=== PATIENT | male | born 1940 | race Caucasian/White ===

== ENCOUNTER → 2017-02-25 | Outpatient (CLI) | payer OTHER ==
[~2017-02-25] MED LIST: ANT25 PO; PRSC1; ZCRUNK; [UNRECOGNIZED DRUG - OTHER]
[2017-02-25 13:10] LABS: BASO % 1.1 %; BASO ABS # 0.08 K/uL (0-0.2); COMPLETE YES; HEMATOCRIT 39.3 % (42-52); IG% 1.8 %; LYMPH % 27.3 %; LYMPH ABS # 1.98 K/uL (1.2-3.4); MEAN CORPUSCULAR HEMOGLOBIN 35.7 pg (25-34); MEAN CORPUSCULAR HGB CONC 34.4 g/dl (32-36); MEAN PLATELET VOLUME 9.8 fL (7.4-10.4); MONO % 16.6 %; NEUT % 49.2 %; PLATELET COUNT 277 K/uL (130-400); RED BLOOD COUNT 3.78 M/uL (4.7-6.1); WHITE BLOOD COUNT 7.25 K/uL (4.8-10.8)
[2017-02-25 13:49] LABS: ALT/SGPT 30 U/L (12-78); AST/SGOT 16 U/L (15-37); BLOOD UREA NITROGEN 14 mg/dl (7-18); BUN/CREATININE RATIO 13.9 (10-20); CALCIUM 8.7 mg/dl (8.5-10.1); CARBON DIOXIDE 30 mmol/L (21-32); CHLORIDE 109 mmol/L (98-107); GLUCOSE 89 mg/dl (70-99); POTASSIUM 4.1 mmol/L (3.5-5.1); SODIUM 143 mmol/L (136-145); TRIGLYCERIDES 101 mg/dl (0-150); VERY LOW DENSITY LIPOPROT CALC 20 mg/dl
[2017-02-25 13:52] LABS: CHOLESTEROL 121 mg/dl (0-200); CHOLESTEROL/HDL RATIO 2.9; HDL CHOLESTEROL 42 mg/dl; LDL CHOLESTEROL CALCULATED 59 mg/dl
[2017-02-25 13:58] LABS: ESTIMATED AVERAGE GLUCOSE 123 mg/dl; HA1C FLAG Normal (Normal)
--- NOTE | 2017-03-02 13:45 | CODING QUERY MEDICAL NECESSITY ---
SUPPORTING DIAGNOSIS NEEDED A supporting diagnosis is required for the test/procedure performed on this patient in order for us to be reimbursed by the patient's insurance. Please provide a supporting diagnosis for the following test/procedure listed below next to the test name along with your signature. *If there is no additional diagnosis for this patient that would support the following test/procedure please document that below next to the test/procedure. Test(s)/Procedure(s) that require a supporting diagnosis: * VITAMIN B-12 LEVEL DIAGNOSIS: * GLYCATED HEMOGLOBIN DIAGNOSIS: * DOS: 02/25/17 Provider Signature: Date: Thank you Luz Marina [facility] Information Management Once completed, please kindly fax back to [phone] For questions please call [phone]
== END | disposition home or self-care (01) ==
LOC: C.LAB1850 11:41
PROVIDERS: ATTEND Internal Medicine
DX: E78.00 Pure hypercholesterolemia, unspecified (principal); D64.9 Anemia, unspecified; R73.9 Hyperglycemia, unspecified

== ENCOUNTER → 2017-03-24 | Outpatient (CLI) | payer OTHER ==
--- NOTE | 2017-03-24 11:22 | DIAGNOSTIC IMAGING REPORT ---
CHEST 2 VIEWS ROUTINE HISTORY: Cough. COMPARISON: Chest 12/09/2013. FINDINGS: No pneumothorax. No pleural effusions. No new focal lung consolidations to suggest pneumonia. Mild elevation of the right hemidiaphragm, unchanged. Left basilar interstitial thickening is also stable. The heart is stable in size. IMPRESSION: No significant change compared to the prior study. No acute process. Electronically signed by: Delvin Guevara M.D. 03/24/2017 11:20 AM Dictated Date/Time: 03/24/2017 11:18 AM
== END | disposition home or self-care (01) ==
LOC: C.RAD1850 11:08
PROVIDERS: ATTEND Physician Assistant
DX: R05 Cough (principal)

== ENCOUNTER → 2017-06-30 | Outpatient (CLI) | payer OTHER | END | disposition home or self-care (01) | LOC: C.LAB1850 12:10 | PROVIDERS: ATTEND Urology | DX: N40.1 Benign prostatic hyperplasia with lower urinary tract symptoms (principal); Z12.5 Encounter for screening for malignant neoplasm of prostate ==

== ENCOUNTER → 2017-09-08 | Outpatient (CLI) | payer OTHER ==
[2017-09-08 13:14] LABS: BASO % 1.3 %; BASO ABS # 0.09 K/uL (0-0.2); COMPLETE YES; EOS % 2.7 %; HEMATOCRIT 38.1 % (42-52); IG% 1.3 %; LYMPH ABS # 2.19 K/uL (1.2-3.4); MEAN CORPUSCULAR HGB CONC 33.6 g/dl (32-36); MEAN PLATELET VOLUME 9.6 fL (7.4-10.4); MONO % 15.6 %; NEUT % 48.1 %; PLATELET COUNT 270 K/uL (130-400); RED BLOOD COUNT 3.56 M/uL (4.7-6.1); WHITE BLOOD COUNT 7.07 K/uL (4.8-10.8)
[2017-09-08 13:48] LABS: ALT/SGPT 27 U/L (12-78); AST/SGOT 19 U/L (15-37); BLOOD UREA NITROGEN 21 mg/dl (7-18); BUN/CREATININE RATIO 24.1 (10-20); CALCIUM 8.6 mg/dl (8.5-10.1); CARBON DIOXIDE 26 mmol/L (21-32); CHLORIDE 109 mmol/L (98-107); CHOLESTEROL 132 mg/dl (0-200); CREATININE 0.86 mg/dl (0.60-1.40); GLUCOSE 97 mg/dl (70-99); POTASSIUM 3.9 mmol/L (3.5-5.1); SODIUM 141 mmol/L (136-145)
[2017-09-08 13:58] LABS: CHOLESTEROL/HDL RATIO 2.9; HDL CHOLESTEROL 46 mg/dl; LDL CHOLESTEROL CALCULATED 69 mg/dl; TRIGLYCERIDES 84 mg/dl (0-150); VERY LOW DENSITY LIPOPROT CALC 17 mg/dl
[2017-09-08 14:59] LABS: ESTIMATED AVERAGE GLUCOSE 128 mg/dl; HA1C FLAG Normal (Normal)
== END | disposition home or self-care (01) ==
LOC: C.LAB1850 12:00
PROVIDERS: ATTEND Internal Medicine
DX: E78.00 Pure hypercholesterolemia, unspecified (principal)

== ENCOUNTER → 2017-09-23 | Outpatient (CLI) | payer OTHER ==
--- NOTE | 2017-09-23 09:35 | DIAGNOSTIC IMAGING REPORT ---
(CHEST) THORAX WITHOUT CLINICAL HISTORY: R09.89 Rales shortness of breath COMPARISON STUDY: 10/17/2010 CT DOSE: 565.24 mGy.cm TECHNIQUE: CT of the thorax was performed from the thoracic inlet to the lung bases. Images are reviewed in the axial, sagittal, and coronal planes. IV contrast was not administered for this examination. A dose lowering technique was utilized adhering to the principles of ALARA. FINDINGS: Thyroid: Imaged portions of the thyroid gland are normal in appearance. Thoracic aorta: The thoracic aorta is normal in course and caliber, noting standard 3 vessel arch anatomy. Heart: There are coronary artery calcifications present. Lungs and pleural spaces: No pleural effusions are visualized. There is evidence for interstitial lung disease with subpleural reticulation. There is no definite honeycombing. There are few scattered low suspicion sub-6 mm perifissural and subpleural nodules. In a high risk patient, a [address] follow-up is optional. Mediastinum: There is no mediastinal lymphadenopathy. Elisha: There is no evidence of pathologic hilar lymphadenopathy given the limitations of a noncontrast study Axilla: Clear. Upper abdomen: Cholelithiasis Skeletal structures: There are no lytic or blastic osseous lesions. IMPRESSION: 1. Slight progression in the interstitial lung disease with subpleural reticulation 2. Scattered sub-6 mm subpleural and perifissural solid pulmonary nodules. In a high risk patient, 12 month follow-up is optional Electronically signed by: Parish Adan M.D. 09/23/2017 9:34 AM Dictated Date/Time: 09/23/2017 9:29 AM
== END | disposition home or self-care (01) ==
LOC: C.CTS 09:09
PROVIDERS: ATTEND Internal Medicine
DX: R09.89 Other specified symptoms and signs involving the circulatory and respiratory systems (principal); R91.8 Other nonspecific abnormal finding of lung field

== ENCOUNTER → 2018-03-08 | Outpatient (CLI) | payer OTHER ==
[2018-03-08 13:20] LABS: BASO % 0.7 %; BASO ABS # 0.05 K/uL (0-0.2); EOS % 3.2 %; EOS ABS # 0.22 K/uL (0-0.5); HEMATOCRIT 38.5 % (42-52); HEMOGLOBIN 13.1 g/dL (14.0-18.0); IG# 0.16 K/uL (0.00-0.02); LYMPH % 27.5 %; LYMPH ABS # 1.88 K/uL (1.2-3.4); MEAN CELL VOLUME 106.9 fL (80-100); MEAN CORPUSCULAR HEMOGLOBIN 36.4 pg (25-34); MEAN PLATELET VOLUME 9.7 fL (7.4-10.4); NEUT % 47.3 %; NEUT ABS # 3.22 K/uL (1.4-6.5); PLATELET COUNT 283 K/uL (130-400); RED CELL DISTRIBUTION WIDTH CV 17.3 % (11.5-14.5); RED CELL DISTRIBUTION WIDTH SD 67.3 fL (36.4-46.3); WHITE BLOOD COUNT 6.83 K/uL (4.8-10.8)
[2018-03-08 14:10] LABS: HEMOGLOBIN A1C 6.1 % (4.5-5.6)
[2018-03-08 14:34] LABS: ALT/SGPT 31 U/L (12-78); AST/SGOT 23 U/L (15-37); BLOOD UREA NITROGEN 15 mg/dl (7-18); CALCIUM 8.7 mg/dl (8.5-10.1); CARBON DIOXIDE 29 mmol/L (21-32); CHOLESTEROL 127 mg/dl (0-200); CREATININE 0.93 mg/dl (0.60-1.40); GLUCOSE 91 mg/dl (70-99); POTASSIUM 3.7 mmol/L (3.5-5.1); SODIUM 140 mmol/L (136-145)
[2018-03-08 14:45] LABS: LDL CHOLESTEROL CALCULATED 68 mg/dl
== END | disposition home or self-care (01) ==
LOC: C.LAB1850 11:45
PROVIDERS: ATTEND Internal Medicine
DX: R09.89 Other specified symptoms and signs involving the circulatory and respiratory systems (principal)

== ENCOUNTER → 2018-07-09 | Outpatient (CLI) | payer OTHER | END | disposition home or self-care (01) | LOC: C.LAB1850 11:00 | PROVIDERS: ATTEND Urology | DX: Z12.5 Encounter for screening for malignant neoplasm of prostate (principal) ==

== ENCOUNTER 2023-02-03 15:57 | Inpatient (IN) ==
--- NOTE | 2023-02-03 17:01 | XRay Report ---
SINGLE VIEW CHEST CLINICAL HISTORY: Dyspnea FINDINGS: An AP, portable, upright chest radiograph is compared to study dated 10/07/2021 and correlat ed with chest CT dated 11/10/2018. The heart is enlarged note and atherosclerotic calcification of th e thoracic aorta. Chronic interstitial thickening is similar to previous. Multifocal airspace consoli dation is seen throughout both lungs. Small pleural effusions are identified. No pneumothorax is seen . The skeletal structures are osteopenic. The bony thorax is grossly intact. A calcified gallstone is seen in the right upper quadrant. IMPRESSION: 1. Multifocal airspace consolidation is seen throughout both lungs. This could represent multifocal p neumonia and/or pulmonary edema. Clinical correlation will be essential. 2. Cardiomegaly. 3. Small pleural effusions. ACT 112: Negative or not required by law. Electronically signed by: Romaine Tucker M.D. 02/03/2023 4:59 PM
[2023-02-03 17:10] LABS: Hematocrit (blood only) 40.1 % (42.0-52.0); Hemoglobin 13.7 g/dl (14.0-18.0); Mean Corpuscular Hemoglobin 34.9 pg (25.0-34.0); Mean Corpuscular Hgb Conc 34.2 g/dL (32.0-36.0); Mean Corpuscular Volume 102.3 fL (80.0-100.0); Mean Platelet Volume 9.7 fL (9.4-12.4); Nucleated RBC # (auto) 0.09 K/uL (0-0.12); Nucleated RBC % (auto) 0.6 %; Platelet Count 788 K/uL (130-400); RDW Coefficient of Variation 22.6 % (11.5-14.5); RDW Standard Deviation 85.7 fL (36.4-46.3); Red Blood Count 3.92 M/uL (4.70-6.10); White Blood Count 16.12 K/ul (4.8-10.8)
[2023-02-03 17:18] LABS: Albumin Globulin Ratio 1.1 (0.9-2); Bilirubin,Total 1.8 mg/dl (0.2-1.0); Calcium 9.2 mg/dl (8.5-10.1); Creatinine Clr Calc Pharmacy 57.8 ml/min; Est GFR (African American) 76.2 ml/min; Est GFR (Non-African American) 65.8 ml/min; Globulin 3.6 gm/dl (2.5-4.0); Magnesium 2.5 mg/dl (1.7-2.4); Potassium 3.9 mmol/L (3.5-5.1); Total Protein 7.6 gm/dl (6.0-8.3)
--- NOTE | 2023-02-03 17:18 | Emergency Department Note ---
Impression & Plan Acute respiratory failure with hypoxia, Acute exacerbation of CHF (congestive heart failure), Non-ST elevation IN (NSTEMI), Elevated brain natriuretic peptide (BNP) level, COVID-19 ED Provider Note HISTORY OF PRESENT ILLNESS: Patient is a 83-year-old male presenting with shortness of breath and hypoxia. He was at his primary care provider's office for follow-up for medication refill and was noted to have oxygen saturation on room air of 60%. He was placed on 5 L nasal cannula and 911 was called. On EMS arrival, the patient was hypoxic on room air and started on 15 L nonrebreather. On arrival to the ER, the patient reports that he is short been short of breath for "a very long time" but has been significantly worse in the last 2 to 3 weeks. He reports bilateral lower extremity edema that has been developing over the last 2 weeks. Denies any prior history of heart failure. Denies any chest pain. He reports feeling short of breath with exertion. Denies any DVT or PE history. ROS: as above PHYSICAL EXAM: Constitutional: Patient appears in no acute distress. HENT: Head: Normocephalic and atraumatic. Eyes: EOMI, PERRL Mouth/Throat: Mucous membranes moist. Neck: Trachea midline. Neck supple. Cardiovascular: RRR, No murmurs, rubs or gallops. Intact distal pulses. Pulmonary/Chest: Coarse breath sounds bilaterally. Patient saturation 70% on room air. He was started on 10 L OxyMask Abdominal: BS +. Abdomen soft, no tenderness, rebound or guarding. Back: No midline spinal tenderness, no paraspinal tenderness, no CVA tenderness. Musculoskeletal: No tenderness or deformity noted. 3+ pitting edema of the bilateral lower extremities extending to the knees Skin: Warm and dry. No rash, erythema, pallor or cyanosis Psychiatric: Appropriate mood and affect for situation. Neurological: Alert and keenly responsive. CN II-XII grossly intact, moving all extremities equally and fully. MDM: - Vitals signs showed hypoxia. Patient's saturations in the 70s on room air. He was started on 10 L nonrebreather - History obtained via patient. Patient presents with shortness of breath and hypoxia. Patient has been having progressively worsening shortness of breath for the last 2 to 3 weeks. He is also been having significant bilateral lower extremity edema for that timeframe. He was at his primary care provider's office for a medication refill appointment when that he was found to be hypoxic on room air. Patient denies any chest pain. He is not on any diuretics. Denies any history of heart failure. Denies any DVT or PE history. He is not on any anticoagulation. - Chronic conditions affecting care: HLD; HTN; BPH; idiopathic pulmonary fibrosis - Differential diagnoses include, but are not limited to: Congestive heart failure; acute coronary syndrome; COPD/asthma exacerbation; pulmonary edema; pu lmonary embolism; pneumonia; pneumothorax; viral syndrome - Order placed for continuous cardiac monitoring. At this time, monitor showed rate of 85 bpm with normal sinus rhythm, per my interpretation. - External medical records reviewed. - EKG reviewed by myself showed junctional rhythm. No acute ischemic changes. Rate 91 bpm. QTc prolonged at 496. - Laboratory workup interpreted by myself showed leukocytosis (WBC 16.12); thrombocytosis (plt 788); stable electrolytes; elevated troponin (35.7); elevated BNP (120); slight transaminitis (AST 54; ALT 54) - VBG shows slight hypercarbia. - Procalcitonin ordered - CXR showed cardiomegaly and multifocal airspace opacities, per my interpretati on. Pleural effusions also noted. - Patient given 80 mg IV lasix for heart failure exacerbation. - CT PE obtained given profound hypoxia. Negative for PE, but noted to have multifocal airspace consolidation. - COVID positive. - Patient given IV rocephin and doxycycline for pneumonia coverage. - Started on BiPAP in ER. - NSTEMI likely secondary to demand from heart failure. - Discussion was had with professor of social work about patient's case and need for admission. - Hospitalist, Dr. Pate, consulted for admission. - Patient admitted to [facility] Hospitalist service for further evaluation and management. I provided 43 minutes of critical care time to this patient's care outside of billable procedures. ASSESSMENT AND PLAN: Diagnosis: dyspnea; acute hypoxic respiratory failure; CHF exacerbation; COVID- 19 infection; NSTEMI Plan: admit Past Med/Surg History Medical History (Updated 02/03/23 @ 18:18 by Pippa Echeverria MD) Anemia BPH (benign prostatic hyperplasia) BPH with obstruction/lower urinary tract symptoms HLD (hyperlipidemia) HTN (hypertension) Interstitial lung disease Surgical History Hx of appendectomy Family History Other No pertinent family history Social History Smoking Status: Former smoker Tobacco Type: Cigarettes Age Started Using Tobacco: 17; Age Quit Using Tobacco: 73; packs per day: 1; Hx Alcohol Use: No Hx Substance Use: No Preferred Language: Latvian Communication Ability: Effective Street Superintendent Required: No Beliefs That Will Affect Care: None Current Living Situation: Alone current occupational status: retired Feels Safe at Home: Yes during the past year weight has: remained stable Dental Care, Regularly: Yes Physical Activity Frequency: Does not Exercise Seatbelt Use: always Assistive Devices: None Allergies Allergies Allergy/AdvReac Type Severity Reaction Status Date / Time atorvastatin AdvReac Intermediate stomach Verified 07/10/22 14:24 upset doxycycline AdvReac Intermediate Gastrointestinal Verified 07/10/22 14:24 Upset Home Meds Home Medications Medication Instructions Recorded Confirmed diphenhydramine 25 2 tab PO HS 11/10/18 02/03/23 mg-acetaminophen 500 mg tablet (Tylenol PM Extra Strength) aspirin 81 mg chewable tablet 81 mg PO DAILY 11/26/21 02/03/23 cholecalciferol (vitamin D3) 25 1,000 mcg PO DAILY 11/26/21 02/03/23 mcg (1,000 unit) capsule (Vitamin D3) albuterol sulfate 2.5 mg/3 mL 2.5 mg continuous nebulization QID 02/03/23 (0.083 %) solution for nebulization PRN Shortness Of Breath guaifenesin 600 mg tablet, 600 mg PO BID 02/03/23 02/03/23 extended release 12 hr (Mucinex) umeclidinium 62.5 mcg-vilanterol 1 ea inhalation DAILY 02/03/23 02/03/23 25 mcg/actuation powdr for inhalation (Anoro Ellipta) Previous Rx's Medication Instructions Recorded finasteride 5 mg tablet 5 mg PO DAILY #90 tabs 12/04/22 terazosin 5 mg capsule 5 mg PO HS #90 caps 01/12/23 Results & Data (ED) Vital Signs Vital Signs - 24 hr 02/03/23 16:11 02/03/23 16:11 02/03/23 16:11 Temperature 36.9 C Temperature Source Oral Pulse Rate 91 H Pulse Rhythm Regular Pulse Strength Normal Respiratory Rate 26 H Respiratory Effort / Characteristics Labored Short of Breath Labored Respiratory Depth Normal Normal Respiratory Pattern Regular Regular Blood Pressure 114/70 Blood Pressure Mean 84 Blood Pressure Position Lying Pulse Oximetry 75 L 96 Oxygen Delivery Method Room Air Oxymask Oxymask Oxygen Flow Rate 10 Fraction of Inspired Oxygen Sepsis Recent Fever Within 48 Hours No Sepsis New/Unexplained Change in Mental Status No Sepsis Action Taken by Nursing No Action Required 02/03/23 16:35 02/03/23 16:50 02/03/23 17:55 Temperature Temperature Source Pulse Rate 87 85 Pulse Rhythm Pulse Strength Respiratory Rate 23 Respiratory Effort / Characteristics Non-Labored Spontaneous Respiratory Depth Normal Respiratory Pattern Regular Blood Pressure Blood Pressure Mean Blood Pressure Position Pulse Oximetry 93 95 Oxygen Delivery Method Oxymask Oxygen Flow Rate 6 Fraction of Inspired Oxygen 60 Sepsis Recent Fever Within 48 Hours Sepsis New/Unexplained Change in Mental Status Sepsis Action Taken by Nursing Laboratory Data 02/03/23 16:12 02/03/23 16:12 Lab Results 02/03/23 02/03/23 02/03/23 Range/Units 16:09 16:12 16:12 WBC 16.12 H (4.8-10.8) K/ul RBC 3.92 L (4.70-6.10) M/uL Hgb 13.7 L (14.0-18.0) g/dl Hct 40.1 L (42.0-52.0) % MCV 102.3 H (80.0-100.0) fL MCH 34.9 H (25.0-34.0) pg MCHC 34.2 (32.0-36.0) g/dL RDW Std Deviation 85.7 H (36.4-46.3) fL RDW Coeff of Jennifer 22.6 H (11.5-14.5) % Plt Count 788 H (130-400) K/uL MPV 9.7 (9.4-12.4) fL Immature Gran % (Auto) 9.6 % Neut % (Auto) 68.5 % Lymph % (Auto) 9.9 % Cavalier % (Auto) 9.0 % Eos % (Auto) 1.1 % Baso % (Auto) 1.9 % Neut # (Auto) 11.05 H (1.40-6.50) K/uL Lymph # (Auto) 1.60 (1.2-3.4) K/uL Cavalier # (Auto) 1.45 H (0.11-0.59) K/uL Eos # (Auto) 0.17 (0-0.50) K/uL Baso # (Auto) 0.31 H (0-0.2) K/uL Immature Gran # (Auto) 1.54 H (0.01-0.20) K/uL Absolute Nucleated RBC 0.09 (0-0.12) K/uL Nucleated RBC % (auto) 0.6 % VBG pH (7.36-7.41) VBG pCO2 (38-50) mmHg VBG pO2 mmHg VBG HCO3 mmol/L VBG O2 Saturation % VBG Base Excess mEq/L Sodium 135 L (136-145) mmol/L Potassium 3.9 (3.5-5.1) mmol/L Chloride 98 (98-107) mmol/L Carbon Dioxide 28 (21-32) mmol/L Anion Gap 9 (3-11) BUN 22 (6-23) mg/dl Creatinine 1.05 (0.6-1.4) mg/dl Est Cr Clr Drug Dosing 57.8 ml/min Est GFR ( Amer) 76.2 ml/min Est GFR (Non-Af Amer) 65.8 ml/min BUN/Creatinine Ratio 21.0 H (10-20) Glucose 100 H (70-99(Fasting)) mg/dl Calcium 9.2 (8.5-10.1) mg/dl Magnesium 2.5 H (1.7-2.4) mg/dl Total Bilirubin 1.8 H (0.2-1.0) mg/dl AST 54 H (13-39) U/L ALT 54 H (7-52) U/L Alkaline Phosphatase 98 (34-104) U/L Troponin I High Sens 35.7 H (0-20) pg/ml B-Natriuretic Peptide (0-100) pg/ml Total Protein 7.6 (6.0-8.3) gm/dl Albumin 4.0 (3.4-5.0) gm/dl Globulin 3.6 (2.5-4.0) gm/dl Albumin/Globulin Ratio 1.1 (0.9-2) SARS-CoV-2 (PCR) POSITIVE A* (Negative) 02/03/23 02/03/23 Range/Units 16:12 17:11 WBC (4.8-10.8) K/ul RBC (4.70-6.10) M/uL Hgb (14.0-18.0) g/dl Hct (42.0-52.0) % MCV (80.0-100.0) fL MCH (25.0-34.0) pg MCHC (32.0-36.0) g/dL RDW Std Deviation (36.4-46.3) fL RDW Coeff of Jennifer (11.5-14.5) % Plt Count (130-400) K/uL MPV (9.4-12.4) fL Immature Gran % (Auto) % Neut % (Auto) % Lymph % (Auto) % Cavalier % (Auto) % Eos % (Auto) % Baso % (Auto) % Neut # (Auto) (1.40-6.50) K/uL Lymph # (Auto) (1.2-3.4) K/uL Cavalier # (Auto) (0.11-0.59) K/uL Eos # (Auto) (0-0.50) K/uL Baso # (Auto) (0-0.2) K/uL Immature Gran # (Auto) (0.01-0.20) K/uL Absolute Nucleated RBC (0-0.12) K/uL Nucleated RBC % (auto) % VBG pH 7.36 (7.36-7.41) VBG pCO2 52 H (38-50) mmHg VBG pO2 54 mmHg VBG HCO3 29 mmol/L VBG O2 Saturation 82.3 % VBG Base Excess 2.8 mEq/L Sodium (136-145) mmol/L Potassium (3.5-5.1) mmol/L Chloride (98-107) mmol/L Carbon Dioxide (21-32) mmol/L Anion Gap (3-11) BUN (6-23) mg/dl Creatinine (0.6-1.4) mg/dl Est Cr Clr Drug Dosing ml/min Est GFR ( Amer) ml/min Est GFR (Non-Af Amer) ml/min BUN/Creatinine Ratio (10-20) Glucose (70-99(Fasting)) mg/dl Calcium (8.5-10.1) mg/dl Magnesium (1.7-2.4) mg/dl Total Bilirubin (0.2-1.0) mg/dl AST (13-39) U/L ALT (7-52) U/L Alkaline Phosphatase (34-104) U/L Troponin I High Sens (0-20) pg/ml B-Natriuretic Peptide 120 H (0-100) pg/ml Total Protein (6.0-8.3) gm/dl Albumin (3.4-5.0) gm/dl Globulin (2.5-4.0) gm/dl Albumin/Globulin Ratio (0.9-2) SARS-CoV-2 (PCR) (Negative) Administered Medications Discontinued Medications Furosemide (Furosemide 40 Mg/4 Ml Vial) 80 mg IV ONE ONE Stop: 02/03/23 17:26 Last Admin: 02/03/23 17:48 Dose: 80 mg Documented By: KODI Ioversol (Optiray 320 500ml) 118 ml IV ONCE ONE Stop: 02/03/23 17:36 Last Admin: 02/03/23 17:36 Dose: 118 ml Documented By: ALLI Imaging Data Radiologist's Impression: Chest X-Ray 02/03/23 16:26 SINGLE VIEW CHEST CLINICAL HISTORY: Dyspnea FINDINGS: An AP, portable, upright chest radiograph is compared to study dated 10/07/2021 and correlated with chest CT dated 11/10/2018. The heart is enlarged note and atherosclerotic calcification of the thoracic aorta. Chronic interstitial thickening is similar to previous. Multifocal airspace consolidation is seen throughout both lungs. Small pleural effusions are identified. No pneumothorax is seen. The skeletal structures are osteopenic. The bony thorax is grossly intact. A calcified gallstone is seen in the right upper quadrant. IMPRESSION: 1. Multifocal airspace consolidation is seen throughout both lungs. This could represent multifocal pneumonia and/or pulmonary edema. Clinical correlation will be essential. 2. Cardiomegaly. 3. Small pleural effusions. ACT 112: Negative or not required by law. Electronically signed by: Romaine Tucker M.D. 02/03/2023 4:59 PM Chest CTA 02/03/23 16:27 CT ANGIOGRAM OF THE CHEST CLINICAL HISTORY: Dyspnea. COMPARISON STUDY: Chest CT dated 11/10/2018. Chest x-ray dated 02/03/2023. TECHNIQUE: Following the IV administration of 118 cc of Optiray 320, CT angiogram of the chest was performed from the upper abdomen to the thoracic inlet utilizing the pulmonary embolus protocol. Images are reviewed in the axial, sagittal, and coronal planes. 3-D MIPS images are created and assessed. IV contrast was administered without complication. A dose lowering technique was utilized adhering to the principles of ALARA. CT DOSE: 436.23 mGy.cm FINDINGS: Thyroid: Imaged portions of the thyroid gland are normal in size and attenuation. Thoracic aorta: There is atherosclerotic calcification of the thoracic aorta, which is normal in caliber and demonstrates standard 3-vessel arch anatomy. No dissection is seen. 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 This is best seen on axial image #212. Pulmonary vasculature: The pulmonary trunk is normal in caliber. There are no filling defects identified in main, lobar, or proximal segmental pulmonary branc hes to suggest pulmonary embolus. Evaluation of the segmental and subsegmental branches in the lower lobes is significantly degraded by motion artifact and lack of contrast opacification. Heart: The heart is enlarged and without pericardial effusion. The coronary arteries are densely calcified. Lungs and pleural spaces: Evaluation of the lung parenchyma is compromised by motion artifact. Multifocal airspace consolidation is seen throughout both lungs. No pleural effusion is identified. Atelectasis is present at both lung bases. The trachea and central airways are clear. Mediastinum: There are numerous mildly enlarged mediastinal lymph nodes. These measure up to 12 mm short axis. Elisha: Mildly enlarged hilar nodes measure up to 13 mm in short axis. Axillae: There is no axillary lymphadenopathy. Upper abdomen: There is a large calcified gallstone. Partially visualized upper abdominal viscera is otherwise grossly unremarkable. Skeletal structures: The skeletal structures are osteopenic. No lytic or blastic bony lesions are seen. Degenerative change and mild hyperkyphosis is noted in the thoracic spine. IMPRESSION: 1. There is no evidence of central pulmonary embolus in the main, lobar, or proximal segmental pulmonary arteries. Evaluation of the segmental and subsegmental branches is significantly degraded, especially in the lower lobes. 2. Multifocal airspace consolidation is typical for an infectious/inflammatory pneumonitis, possibly viral. Clinical correlation will be essential and radiographic follow-up to resolution is recommended. 3. No pleural effusion is seen. 4. Cardiomegaly. 5. Mildly enlarged mediastinal and hilar lymph nodes are likely reactive. 6. Cholelithiasis. 7. 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 Note that this may place the patient at risk for steal phenomenon. 8. Additional findings as above. ACT 112: Negative or not required by law. Electronically signed by: Romaine Tucker M.D. 02/03/2023 5:52 PM Discharge Plan Visit Data Chief Complaint: Shortness of Breath/Dyspnea Stated Complaint: SHORTNESS OF BREATH ED Provider: Pippa Echeverria Discharge Problem: Acute respiratory failure with hypoxia, Acute exacerbation of CHF (congestive heart failure), Non-ST elevation IN (NSTEMI), Elevated brain natriuretic peptide (BNP) level, COVID-19 Forms Stand Alone Forms: My [employer] Prescriptions Prescriptions: No Action terazosin 5 mg capsule 5 mg PO HS Qty: 90 3RF finasteride 5 mg tablet 5 mg PO DAILY Qty: 90 3RF diphenhydramine-acetaminophen [Tylenol PM Extra Strength] 25-500 mg Tablet 2 tab PO HS aspirin 81 mg Tablet,Chewable 81 mg PO DAILY cholecalciferol (vitamin D3) [Vitamin D3] 25 mcg (1,000 unit) Capsule 1,000 mcg PO DAILY albuterol sulfate 2.5 mg /3 mL (0.083 %) solution for nebulization 2.5 mg continuous nebulization QID PRN (Reason: Shortness Of Breath) Anoro Ellipta 62.5-25 mcg/actuation blister with device 1 ea INHALATION DAILY guaifenesin [Mucinex] 600 mg Tablet Extended Release 12hr 600 mg PO BID Referrals Referrals: Kaya Mendez [Primary Care Provider] -
[2023-02-03 17:19] LABS: Base Excess VBG 2.8 mEq/L; HCO3 VBG 29 mmol/L; Oxygen Saturation VBG 82.3 %; PCO2 VBG 52 mmHg (38-50); PO2 VBG 54 mmHg; pH VBG 7.36 (7.36-7.41)
[2023-02-03 17:21] LABS: Troponin I High Sensitivity 35.7 pg/ml (0-20)
[2023-02-03] MEDS ORDERED: FUROSEMIDE 40 MG/4 ML VIAL IV ONE (17:25)
[2023-02-03] MEDS ORDERED: OPTIRAY 320 500ml IV ONE (17:35)
[2023-02-03 17:55] LABS: Basophils # (auto) 0.31 K/uL (0-0.2); Basophils % (auto) 1.9 %; Eosinophils # (auto) 0.17 K/uL (0-0.50); Eosinophils % (auto) 1.1 %; Immature Granulocytes # (auto) 1.54 K/uL (0.01-0.20); Immature Granulocytes % (auto) 9.6 %; Lymphocytes % (auto) 9.9 %; Monocytes # (auto) 1.45 K/uL (0.11-0.59); Neutrophils # (auto) 11.05 K/uL (1.40-6.50); Neutrophils % (auto) 68.5 %
--- NOTE | 2023-02-03 17:55 | CT Scan Report ---
CT ANGIOGRAM OF THE CHEST CLINICAL HISTORY: Dyspnea. COMPARISON STUDY: Chest CT dated 11/10/2018. Chest x-ray dated 02/03/2023. TECHNIQUE: Following the IV administration of 118 cc of Optiray 320, CT angiogram of the chest was pe rformed from the upper abdomen to the thoracic inlet utilizing the pulmonary embolus protocol. Images are reviewed in the axial, sagittal, and coronal planes. 3-D MIPS images are created and assessed. I V contrast was administered without complication. A dose lowering technique was utilized adhering to the principles of ALARA. CT DOSE: 436.23 mGy.cm FINDINGS: Thyroid: Imaged portions of the thyroid gland are normal in size and attenuation. Thoracic aorta: There is atherosclerotic calcification of the thoracic aorta, which is normal in yue alejandro and demonstrates standard 3-vessel arch anatomy. No dissection is seen. There is high-grade steno sis with near complete occlusion of the left subclavian artery below the thoracic outlet. This is bes t seen on axial image #212. Pulmonary vasculature: The pulmonary trunk is normal in caliber. There are no filling defects identif ied in main, lobar, or proximal segmental pulmonary branches to suggest pulmonary embolus. Evaluation of the segmental and subsegmental branches in the lower lobes is significantly degraded by motion ar tifact and lack of contrast opacification. Heart: The heart is enlarged and without pericardial effusion. The coronary arteries are densely calc ified. Lungs and pleural spaces: Evaluation of the lung parenchyma is compromised by motion artifact. Multif ocal airspace consolidation is seen throughout both lungs. No pleural effusion is identified. Atelect asis is present at both lung bases. The trachea and central airways are clear. Mediastinum: There are numerous mildly enlarged mediastinal lymph nodes. These measure up to 12 mm sh ort axis. Elisha: Mildly enlarged hilar nodes measure up to 13 mm in short axis. Axillae: There is no axillary lymphadenopathy. Upper abdomen: There is a large calcified gallstone. Partially visualized upper abdominal viscera is otherwise grossly unremarkable. Skeletal structures: The skeletal structures are osteopenic. No lytic or blastic bony lesions are see n. Degenerative change and mild hyperkyphosis is noted in the thoracic spine. IMPRESSION: 1. There is no evidence of central pulmonary embolus in the main, lobar, or proximal segmental pulmon shannon arteries. Evaluation of the segmental and subsegmental branches is significantly degraded, especi ally in the lower lobes. 2. Multifocal airspace consolidation is typical for an infectious/inflammatory pneumonitis, possibly viral. Clinical correlation will be essential and radiographic follow-up to resolution is recommended . 3. No pleural effusion is seen. 4. Cardiomegaly. 5. Mildly enlarged mediastinal and hilar lymph nodes are likely reactive. 6. Cholelithiasis. 7. 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 Note that this may place the patient at risk for steal phenomenon. 8. Additional findings as above. ACT 112: Negative or not required by law. Electronically signed by: Romaine Tucker M.D. 02/03/2023 5:52 PM
[2023-02-03] MEDS ORDERED: cefTRIAXone SODIUM 2,000 MG/70 ML BAG IV STA (18:02)
[2023-02-03] MEDS ORDERED: DOXYCYCLINE HYCLATE 100 MG CAP PO STA (18:02)
[2023-02-03 18:33] LABS: Appearance Urine Clear (Clear); Bilirubin Urine Negative (Negative); Blood Urine Negative (Negative); Color Urine Dark Yellow; Glucose Urine UA Negative (Negative); Ketones Urine Negative (Negative); Leukocyte Esterase Urine Negative (Negative); Nitrite Urine Negative (Negative); Protein Urine Negative (Negative); Specific Gravity Urine 1.024 (1.000-1.030); Urobilinogen Urine Negative (Negative); pH Urine 5.5 (4.5-7.5)
--- NOTE | 2023-02-03 18:59 | History & Physical Report ---
Date of Service February 03, 2023 Assessment & Plan (1) Acute respiratory failure with hypoxia: Plan: Acute hypoxic respiratory failure, multifactorial with COVID, acute congestive heart failure. +/- Secondary pneumonia Patient with leukocytosis and left shift on admission Clinically volume overloaded with elevated BNP and pulmonary edema consistent with CHF Multifocal opacities seen on CT which may represent viral pneumonia versus superimposed pneumonia. Received empiric Rocephin/doxycycline in ER, defer additional antibiotics pending Pro-Chao and progression. If Pro-Chao elevated, continue Rocephin/doxycycline for 5-day course. We will treat for CHF, received Lasix 80 with brisk diuresis. Continue diuresis twice daily VBG 7.3 //, compensated mild hypercapnia COVID-positive. Creatinine function is at baseline, but does have elevated transaminitis suspect hepatic congestion Dexamethasone 6 mg daily. We will treat with aggressive Lasix for heart failure. If PPV is required despite heart failure improvement suspect 2/2 COVID. CRP pending Troponin trended Echo pending BPH with LUTS [place] with CHF and volume overload Hypertension Normotensive on admission Interstitial lung disease Follows with pulmonology as outpatient Stable as outpatient, is not on steroids Continue Anoro/formulary equivalent Chronic anemia At baseline on admission DVT: Enox Diet: NPO CODE: Full Dispo: PCU (2) Acute exacerbation of CHF (congestive heart failure): (3) Non-ST elevation DE (NSTEMI): (4) COVID-19: (5) IPF (idiopathic pulmonary fibrosis): History of Present Illness Primary Care Provider: Kaya Mendez Toan Smalls is an 83-year-old male with a past medical history of idiopathic pulmonary fibrosis, hyperlipidemia, hypertension, BPH, and macrocytic anemia presented to the emergency department with shortness of breath and hypoxia. He does not have a prior history of CHF, on ER evaluation was hypoxic and had required 5 L nasal cannula in route due to SPO2 of the 60s which was increased to 15 L nonrebreather. Patient reports he has had 2 to 3 weeks of worsening shortness of breath, bilateral lower extremity edema, and easy fatigue. Enmanuel is seen at the bedside. He reports his breathing has been bad for many months, but has been especially bad over the last 2 weeks. He has had no chest pain, but has had increasing shortness of breath, inability to lay flat, and a constant cough for at least 1 week. Denies fever, chills. He is hungry, and has a good appetite. Denies nausea, vomiting, diarrhea, constipation. Denies focal weakness, endorses fatigue in the last 2 weeks. He is not on any blood thinners. Denies bleeding. He reports that he understands his medical condition, has never had heart failure and is surprised that he has COVID. Is DNR/DNI, is not sure if he would want intubation for declining respiratory status. Is agreeable to BiPAP. Does not have any family he would like called updated on his condition. with leukocytosis, hemoglobin 13.7, reactive thrombocytopenia of 788, sodium 135, mild transaminitis, BNP of 120, high-sensitivity troponin of 35.7, and a pending procalcitonin. His COVID is positive on admission. CTAchest: No evidence of PE. Multifocal airspace consolidation typical for infectious pneumonitis. Reactive enlarged mediastinal hilar lymph nodes. 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 below the thoracic outlet, patient at risk for steal phenomenon CXR: Multifocal airspace opacities, cardiomegaly, small pleural effusions Medical History: Reviewed Medications: Reviewed Surgical History: Reviewed Family history: Reviewed Allergies: Reviewed Social History: Reviewed Code Status: DNR/DNI Allergies Allergy/AdvReac Type Severity Reaction Status Date / Time atorvastatin AdvReac Intermediate stomach Verified 07/10/22 14:24 upset doxycycline AdvReac Intermediate Gastrointestinal Verified 07/10/22 14:24 Upset Home Medications Medication Instructions Recorded Confirmed Type diphenhydramine 25 2 tab PO HS 11/10/18 02/03/23 History mg-acetaminophen 500 mg tablet (Tylenol PM Extra Strength) aspirin 81 mg chewable tablet 81 mg PO DAILY 11/26/21 02/03/23 History cholecalciferol (vitamin D3) 25 1,000 mcg PO DAILY 11/26/21 02/03/23 History mcg (1,000 unit) capsule (Vitamin D3) finasteride 5 mg tablet 5 mg PO DAILY #90 tabs 12/04/22 02/03/23 Rx terazosin 5 mg capsule 5 mg PO HS #90 caps 01/12/23 02/03/23 Rx albuterol sulfate 2.5 mg/3 mL 2.5 mg continuous nebulization QID 02/03/23 02/03/23 History (0.083 %) solution for nebulization PRN Shortness Of Breath guaifenesin 600 mg tablet, 600 mg PO BID 02/03/23 02/03/23 History extended release 12 hr (Mucinex) umeclidinium 62.5 mcg-vilanterol 1 ea inhalation DAILY 02/03/23 02/03/23 History 25 mcg/actuation powdr for inhalation (Anoro Ellipta) Past Med/Surg History Medical History Anemia BPH (benign prostatic hyperplasia) BPH with obstruction/lower urinary tract symptoms HLD (hyperlipidemia) HTN (hypertension) Interstitial lung disease Surgical History Hx of appendectomy Family History Other No pertinent family history Social History Smoking Status: Former smoker Tobacco Type: Cigarettes Age Started Using Tobacco: 17; Age Quit Using Tobacco: 73; packs per day: 1; Hx Alcohol Use: No Hx Substance Use: No Preferred Language: German Communication Ability: Effective Reconnaissance Man Required: No Beliefs That Will Affect Care: None Current Living Situation: Alone current occupational status: retired Feels Safe at Home: Yes during the past year weight has: remained stable Dental Care, Regularly: Yes Physical Activity Frequency: Does not Exercise Seatbelt Use: always Assistive Devices: None Review of Systems Review of Systems: All systems reviewed & are unremarkable except as noted in HPI & below Physical Exam Physical Exam: General: A&Ox3. NAD. Cooperative. HEENT: Atraumatic, normocephalic. Vision/hearing grossly intact. On pPv, comfortable at time of assessment. Pulm: Coarse, bibasilar crackles, no wheezing. Symmetrical chest rise. No increased work of breathing. No respiratory distress. Cardiac: RRR, -mrg. Radial pulses intact and symmetrical. Abdominal: Nontender, nondistended, soft. BS present. Extremities: Warm, dry. Pitting edema of the lower extremities bilaterally. Sensation intact in hands and feet, ankle dorsiflexion/plantarflexion5/5. Results & Data Results & Data ([facility]) Vital Signs (Past 12 Hours) Vital Signs Temp Pulse Resp BP Pulse Ox O2 Del Method O2 Flow Rate 02/03/23 17:55 85 23 95 02/03/23 16:50 93 Oxymask 6 02/03/23 16:35 87 02/03/23 16:11 96 Oxymask 10 02/03/23 16:11 Oxymask 02/03/23 16:11 36.9 C 91 H 26 H 114/70 75 L Room Air FiO2 02/03/23 17:55 60 02/03/23 16:50 02/03/23 16:35 02/03/23 16:11 02/03/23 16:11 02/03/23 16:11 PG Care Time/CCT Total # of Minutes Spent Total Time Spent with Patient: Total time spent is greater than 50% in coordination of care (as documented) at patient's floor/unit and/or counseling patient: Coding Level of Care Code 31466 INT INP/OBS CARE 3/75MIN Diagnoses Acute respiratory failure with hypoxia J96.01 Acute exacerbation of CHF (congestive heart failure) I50.9 Non-ST elevation DE (NSTEMI) I21.4 COVID-19 U07.1 IPF (idiopathic pulmonary fibrosis) J84.112
[2023-02-03 20:27] LABS: INR 1.2 (0.9-1.1); Prothrombin Time 12.2 Seconds (9.0-12.0)
[2023-02-03] MEDS ORDERED: ACETAMINOPHEN 325 MG TAB PO PRN (21:21)
[2023-02-03] MEDS ORDERED: ALBUTEROL 0.083% NEBU SOLN 3 ML VIAL NEB PRN (21:21)
[2023-02-03 22:29] LABS: C Reactive Protein 6.46 mg/dl (0-0.5); Troponin I High Sensitivity 28.5 pg/ml (0-20)
[2023-02-03] MEDS: ENOXAPARIN INJ 40 MG/0.4 ML SYR SQ SCH (22:37)
[2023-02-03] MEDS: TERAZOSIN HCL 5 MG CAP PO SCH (22:38)
[2023-02-03] MEDS: guaiFENesin 600 MG TABCR PO SCH (22:38)
[2023-02-04 02:50] LABS: Hematocrit (blood only) 36.4 % (42.0-52.0); Hemoglobin 12.8 g/dl (14.0-18.0); Mean Corpuscular Hemoglobin 36.1 pg (25.0-34.0); Mean Corpuscular Hgb Conc 35.2 g/dL (32.0-36.0); Mean Corpuscular Volume 102.5 fL (80.0-100.0); Mean Platelet Volume 9.3 fL (9.4-12.4); Nucleated RBC # (auto) 0.06 K/uL (0-0.12); Nucleated RBC % (auto) 0.4 %; Platelet Count 637 K/uL (130-400); RDW Coefficient of Variation 22.2 % (11.5-14.5); RDW Standard Deviation 83.7 fL (36.4-46.3); Red Blood Count 3.55 M/uL (4.70-6.10)
[2023-02-04 03:04] LABS: Calcium 8.4 mg/dl (8.5-10.1); Creatinine Clr Calc Pharmacy 52.7 ml/min; Est GFR (African American) 68.3 ml/min; Est GFR (Non-African American) 58.9 ml/min; Potassium 3.7 mmol/L (3.5-5.1)
[2023-02-04 03:33] LABS: Anisocytosis Present; Basophils # (auto) 0.18 K/uL (0-0.2); Basophils % (auto) 1.3 %; Eosinophils # (auto) 0.31 K/uL (0-0.50); Eosinophils % (auto) 2.2 %; Immature Granulocytes % (auto) 7.1 %; Monocytes # (auto) 1.43 K/uL (0.11-0.59); Monocytes % (auto) 10.2 %; Neutrophils # (auto) 9.68 K/uL (1.40-6.50); Neutrophils % (auto) 69.2 %; Ovalocytes 1+; Polychromasia 1+; Tear Drop Cells 1+
[2023-02-04] MEDS: ASPIRIN 81 MG CHEW PO SCH (08:39)
[2023-02-04] MEDS: guaiFENesin 600 MG TABCR PO SCH ×2 (08:40→21:00)
[2023-02-04] MEDS: FUROSEMIDE 40 MG/4 ML VIAL IV SCH ×2 (08:40→16:13)
[2023-02-04] MEDS: FINASTERIDE 5 MG TAB PO SCH (08:40)
[2023-02-04] MEDS: ENOXAPARIN INJ 40 MG/0.4 ML SYR SQ SCH ×2 (08:40→21:03)
[2023-02-04] MEDS: CHOLECALCIFEROL 1,000 UNITS 25 MCG TAB PO SCH (08:40)
[2023-02-04] MEDS: UMECLIDINIUM/VILANTEROL 62.5/25MCG 7 PUFFS/INHALER INH SCH (08:41)
[2023-02-04] MEDS ORDERED: dexAMETHasone 6 MG in SYRINGE 0 ML IV SCH (09:00)
--- NOTE | 2023-02-04 13:14 | XCELERA ---
[id number]
--- NOTE | 2023-02-04 15:23 | Hospitalist Progress Note ---
Date of Service February 04, 2023 Assessment & Plan (1) Acute respiratory failure with hypoxia: Plan: Due to combined effects of interstitial lung disease and acute diastolic CHF. Continue supplemental oxygen per nasal cannula to maintain saturation greater than 90%. Wean off as tolerated. He is COVID-positive and could have viral pneumonia also. Multifocal opacities seen on CT which may represent viral pneumonia versus superimposed pneumonia. Received empiric Rocephin/doxycycline in ER. (2) Acute exacerbation of CHF (congestive heart failure): Plan: Suspected acute diastolic congestive heart failure. Continue Lasix diuresis. Monitor intake and output. Serial chest x-ray (3) Non-ST elevation OK (NSTEMI): Plan: Ruled out. Troponin is minimally elevated but no evidence of acute OK (4) COVID-19: Plan: Positivity noted. Symptomatic care. Difficult to say whether he has any current component of viral pneumonia. He has chronic interstitial lung disease and CHF at this time that is being treated. (5) IPF (idiopathic pulmonary fibrosis): Plan: Supportive care. Treat CHF. Oxygen supplementation as needed Plan To be determined. Will obtain Occupational Therapy and physical therapy assessments tomorrow, February 05 Admission and Anticipated Discharge Date Admission Date: February 03, 2023 Subjective Somnolent but easily arousable and oriented. I suspect he has a component of acute diastolic CHF causing the hypoxic respiratory failure. He has known interstitial lung disease. We will continue Lasix diuresis. Most recent cardiac echo reveals ejection fraction preserved. Will wean oxygen off as tole rated. Will order occupational therapy and physical therapy tomorrow, February 05 Review of Systems Review of Systems: Constitutional-no fever or chills ENT-no blurred vision, no double vision, no epistaxis, no sore throat Respiratory-no cough, no wheezing. Shortness of breath with minimal exertion Cardiac-no palpitations, no chest pain, no syncope GI-no nausea, vomiting, diarrhea, melena, hematochezia -no urinary retention, no urinary incontinence, no dysuria, no hematuria Musculoskeletal-no joint pain, no muscle tenderness Skin-no bruising, no rashes, no pruritus Neuro-no isolated weakness, no paresthesia, no weakness Psych-no depression, no anxiety Physical Exam Physical Exam: General-alert and oriented x3, no fevers, no chills HEENT-head atraumatic and normocephalic, pupils equal and reactive to light, extraocular muscles intact Neck-no lymphadenopathy or thyromegaly, trachea midline Chest-bibasilar fine and coarse inspiratory rales. No rhonchi. No wheezing. Cardiac-regular rate and rhythm, normal S1 and S2 Abdomen-normal bowel sounds, nontender, no hepatosplenomegaly Extremities-no cyanosis, clubbing, or edema Neuro-cranial nerves II through XII intact, motor and sensory function within normal limits, strength symmetrical , no focal deficits Psych-normal affect, normal mood Results & Data Results & Data ([facility]) Vital Signs (Past 12 Hours) Vital Signs Temp Pulse Pulse Resp BP Pulse Ox O2 Del Method 02/04/23 12:15 36.7 C 69 20 121/69 96 Nasal Cannula 02/04/23 08:00 76 02/04/23 08:00 Oxymask 02/04/23 08:12 36.4 C L 75 19 111/72 91 Oxymask 02/04/23 05:03 92 H Oxymask O2 Flow Rate 02/04/23 12:15 6.0 02/04/23 08:00 02/04/23 08:00 6 02/04/23 08:12 6.0 02/04/23 05:03 6 Laboratory Results 02/04/23 02:33 02/04/23 02:33 PG Care Time/CCT Total # of Minutes Spent Total Time Spent with Patient: Total time spent is greater than 50% in coordination of care (as documented) at patient's floor/unit and/or counseling patient: Coding Level of Care Code 68945 SUB INP/OBS CARE 3/50MIN Diagnoses Acute respiratory failure with hypoxia J96.01 Acute exacerbation of CHF (congestive heart failure) I50.9 Non-ST elevation OK (NSTEMI) I21.4 COVID-19 U07.1 IPF (idiopathic pulmonary fibrosis) J84.112
[2023-02-04] MEDS: dexAMETHasone 6 MG in SYRINGE 0 ML IV SCH (21:00)
[2023-02-04] MEDS: TERAZOSIN HCL 5 MG CAP PO SCH (21:00)
--- NOTE | 2023-02-05 05:46 | Electrocardiogram Report ---
Test Reason : Blood Pressure : / mmHG Vent. Rate : 091 BPM Atrial Rate : 091 BPM P-R Int : 000 ms QRS Dur : 104 ms QT Int : 404 ms P-R-T Axes : 000 -57 027 degrees QTc Int : 496 ms Poor data quality, interpretation may be adversely affected Sinus rhythm Left anterior fascicular block Voltage criteria for left ventricular hypertrophy Abnormal ECG When compared with ECG of 26-NOV-2021 14:30, No significant change Confirmed by Sina Morales ([id number]) on 02/05/2023 5:46:48 AM Referred By: William Ponce Confirmed By:Sina Morales
[2023-02-05 07:27] LABS: Hemoglobin 13.2 g/dl (14.0-18.0); Mean Corpuscular Hemoglobin 35.4 pg (25.0-34.0); Mean Corpuscular Hgb Conc 34.7 g/dL (32.0-36.0); Mean Corpuscular Volume 101.9 fL (80.0-100.0); Mean Platelet Volume 9.7 fL (9.4-12.4); Nucleated RBC # (auto) 0.07 K/uL (0-0.12); Nucleated RBC % (auto) 0.7 %; Platelet Count 643 K/uL (130-400); RDW Coefficient of Variation 21.8 % (11.5-14.5); RDW Standard Deviation 82.1 fL (36.4-46.3); Red Blood Count 3.73 M/uL (4.70-6.10); White Blood Count 10.68 K/ul (4.8-10.8)
[2023-02-05 07:45] LABS: Calcium 8.9 mg/dl (8.5-10.1); Creatinine Clr Calc Pharmacy 53.7 ml/min; Est GFR (African American) 69.8 ml/min; Est GFR (Non-African American) 60.2 ml/min; Potassium 4.1 mmol/L (3.5-5.1)
[2023-02-05] MEDS: guaiFENesin 600 MG TABCR PO SCH ×2 (07:48→21:23)
[2023-02-05] MEDS: FUROSEMIDE 40 MG/4 ML VIAL IV SCH ×2 (07:48→16:42)
[2023-02-05] MEDS: ASPIRIN 81 MG CHEW PO SCH (07:48)
[2023-02-05] MEDS: UMECLIDINIUM/VILANTEROL 62.5/25MCG 7 PUFFS/INHALER INH SCH (07:48)
[2023-02-05] MEDS: FINASTERIDE 5 MG TAB PO SCH (07:48)
[2023-02-05] MEDS: CHOLECALCIFEROL 1,000 UNITS 25 MCG TAB PO SCH (07:48)
[2023-02-05 07:57] LABS: Basophils % (auto) 0.9 %; Eosinophils # (auto) 0.02 K/uL (0-0.50); Eosinophils % (auto) 0.2 %; Immature Granulocytes # (auto) 0.71 K/uL (0.01-0.20); Immature Granulocytes % (auto) 6.6 %; Lymphocytes # (auto) 0.89 K/uL (1.2-3.4); Lymphocytes % (auto) 8.3 %; Monocytes # (auto) 1.11 K/uL (0.11-0.59); Monocytes % (auto) 10.4 %; Neutrophils # (auto) 7.85 K/uL (1.40-6.50); Neutrophils % (auto) 73.6 %; Polychromasia 1+
[2023-02-05] MEDS: ENOXAPARIN INJ 40 MG/0.4 ML SYR SQ SCH ×2 (08:47→21:22)
[2023-02-05] MEDS: dexAMETHasone 6 MG in SYRINGE 0 ML IV SCH ×2 (08:47→22:07)
--- NOTE | 2023-02-05 10:26 | XRay Report ---
XR chest 1V portable HISTORY: 83 years-old Male respiratory failure acute respiratory failure COMPARISON: 02/03/2023 TECHNIQUE: AP view of the chest FINDINGS: Cardiomediastinal and hilar silhouettes are within normal limits. Mildly improved aeration of the humberto gs with persistent intermixed interstitial and airspace opacities. No pneumothorax or pleural effusio n. Degenerative changes of the shoulders and spine. IMPRESSION: Cardiomegaly with persistent yet slightly improved mixed interstitial and alveolar opacit ies of the lungs suggestive of multifocal pneumonia. ACT 112: Negative or not required by law. The above report was generated using voice recognition software. It may contain grammatical, syntax o r spelling errors. Electronically signed by: Hank Thomson M.D. 02/05/2023 10:25 AM
--- NOTE | 2023-02-05 16:04 | Hospitalist Progress Note ---
Date of Service February 05, 2023 Assessment & Plan (1) Acute respiratory failure with hypoxia: Plan: Due to combined effects of interstitial lung disease and acute diastolic CHF. Continue supplemental oxygen per nasal cannula to maintain saturation greater than 90%. Wean off as tolerated. He is COVID-positive and could have viral pneumonia also. Multifocal opacities seen on CT which may represent viral pneumonia versus superimposed pneumonia. Received empiric Rocephin/doxycycline in ER. He is diuresing well with intravenous Lasix. Chest x-ray today, February 05, looks better. We will repeat chest x-ray every 2 days while he is here (2) Acute exacerbation of CHF (congestive heart failure): Plan: Suspected acute diastolic congestive heart failure. Continue Lasix diuresis. Monitor intake and output. Serial chest x-ray every 2 days. Chest x-ray today, February 05, looks better (3) Non-ST elevation IA (NSTEMI): Plan: Ruled out. Troponin is minimally elevated but no evidence of acute IA (4) COVID-19: Plan: Positivity noted. Symptomatic care. Difficult to say whether he has any current component of viral pneumonia. He has chronic interstitial lung disease and CHF at this time that is being treated. (5) IPF (idiopathic pulmonary fibrosis): Plan: Supportive care. Treat CHF. Oxygen supplementation as needed Plan He apparently lives at [facility]. OT and PT assessments have been requested. He may need to go to SNF first before he can go back to his usual living arrangements. Admission and Anticipated Discharge Date Admission Date: February 03, 2023 Subjective Alert and oriented. Very pleasant. He appears to be quite weak. He remains on 6 L oxygen per nasal cannula but his chest x-ray today, February 05, looks better. He continues to diurese well with intravenous Lasix. Review of Systems Review of Systems: Constitutional-no fever or chills ENT-no blurred vision, no double vision, no epistaxis, no sore throat Respiratory-no cough, no wheezing. Shortness of breath with minimal exertion Cardiac-no palpitations, no chest pain, no syncope GI-no nausea, vomiting, diarrhea, melena, hematochezia -no urinary retention, no urinary incontinence, no dysuria, no hematuria Musculoskeletal-no joint pain, no muscle tenderness Skin-no bruising, no rashes, no pruritus Neuro-no isolated weakness, no paresthesia, no weakness Psych-no depression, no anxiety Physical Exam Physical Exam: General-alert and oriented x3, no fevers, no chills HEENT-head atraumatic and normocephalic, pupils equal and reactive to light, extraocular muscles intact Neck-no lymphadenopathy or thyromegaly, trachea midline Chest-bibasilar fine and coarse inspiratory rales. No rhonchi. No wheezing. Cardiac-regular rate and rhythm, normal S1 and S2 Abdomen-normal bowel sounds, nontender, no hepatosplenomegaly Extremities-no cyanosis, clubbing, or edema Neuro-cranial nerves II through XII intact, motor and sensory function within normal limits, strength symmetrical , no focal deficits Psych-normal affect, normal mood Results & Data Results & Data ([facility]) Vital Signs (Past 12 Hours) Vital Signs Temp Pulse Pulse Resp BP Pulse Ox O2 Del Method 02/05/23 15:19 61 02/05/23 10:42 36.3 C L 71 18 119/72 96 Nasal Cannula 02/05/23 08:00 75 02/05/23 08:00 Nasal Cannula 02/05/23 07:46 36.6 C 81 20 100/62 93 Nasal Cannula 02/05/23 04:35 36.6 C 72 18 113/72 97 Nasal Cannula O2 Flow Rate 02/05/23 15:19 02/05/23 10:42 6 02/05/23 08:00 02/05/23 08:00 6 02/05/23 07:46 6 02/05/23 04:35 6 Laboratory Results 02/05/23 06:54 02/05/23 06:54 PG Care Time/CCT Total # of Minutes Spent Total Time Spent with Patient: Total time spent is greater than 50% in coordination of care (as documented) at patient's floor/unit and/or counseling patient: Coding Level of Care Code 35628 SUB INP/OBS CARE 3/50MIN Diagnoses Acute respiratory failure with hypoxia J96.01 Acute exacerbation of CHF (congestive heart failure) I50.9 Non-ST elevation IA (NSTEMI) I21.4 COVID-19 U07.1 IPF (idiopathic pulmonary fibrosis) J84.112
[2023-02-05] MEDS: DOCUSATE SODIUM 100 MG CAP PO SCH (21:23)
[2023-02-05] MEDS: POLYETHYLENE (MIRALAX) 17 GM PACK PO SCH (21:23)
[2023-02-05] MEDS: TERAZOSIN HCL 5 MG CAP PO SCH (21:24)
[2023-02-06 07:37] LABS: Hematocrit (blood only) 39.6 % (42.0-52.0); Hemoglobin 13.6 g/dl (14.0-18.0); Mean Corpuscular Hemoglobin 34.8 pg (25.0-34.0); Mean Corpuscular Hgb Conc 34.3 g/dL (32.0-36.0); Mean Corpuscular Volume 101.3 fL (80.0-100.0); Mean Platelet Volume 9.8 fL (9.4-12.4); Nucleated RBC # (auto) 0.05 K/uL (0-0.12); Nucleated RBC % (auto) 0.4 %; Platelet Count 682 K/uL (130-400); RDW Coefficient of Variation 21.5 % (11.5-14.5); Red Blood Count 3.91 M/uL (4.70-6.10)
[2023-02-06 07:53] LABS: BUN Creatinine Ratio 35.5 (10-20); Calcium 9.2 mg/dl (8.5-10.1); Creatinine Clr Calc Pharmacy 55.1 ml/min; Est GFR (African American) 72.1 ml/min; Est GFR (Non-African American) 62.2 ml/min; Potassium 4.4 mmol/L (3.5-5.1)
[2023-02-06 08:01] LABS: Anisocytosis Present; Basophils # (auto) 0.13 K/uL (0-0.2); Basophils % (auto) 1.1 %; Eosinophils # (auto) 0.03 K/uL (0-0.50); Eosinophils % (auto) 0.3 %; Immature Granulocytes # (auto) 0.66 K/uL (0.01-0.20); Immature Granulocytes % (auto) 5.7 %; Lymphocytes # (auto) 1.02 K/uL (1.2-3.4); Lymphocytes % (auto) 8.8 %; Monocytes # (auto) 1.04 K/uL (0.11-0.59); Neutrophils # (auto) 8.72 K/uL (1.40-6.50); Neutrophils % (auto) 75.1 %
[2023-02-06] MEDS: POLYETHYLENE (MIRALAX) 17 GM PACK PO SCH ×2 (08:44→21:47)
[2023-02-06] MEDS: DOCUSATE SODIUM 100 MG CAP PO SCH ×2 (08:44→21:48)
[2023-02-06] MEDS: dexAMETHasone 6 MG in SYRINGE 0 ML IV SCH ×2 (08:44→21:47)
[2023-02-06] MEDS: FUROSEMIDE 40 MG/4 ML VIAL IV SCH (08:44)
[2023-02-06] MEDS: UMECLIDINIUM/VILANTEROL 62.5/25MCG 7 PUFFS/INHALER INH SCH (08:45)
[2023-02-06] MEDS: FINASTERIDE 5 MG TAB PO SCH (08:45)
[2023-02-06] MEDS: ASPIRIN 81 MG CHEW PO SCH (08:45)
[2023-02-06] MEDS: CHOLECALCIFEROL 1,000 UNITS 25 MCG TAB PO SCH (08:45)
[2023-02-06] MEDS: guaiFENesin 600 MG TABCR PO SCH ×2 (08:45→21:48)
[2023-02-06] MEDS ORDERED: POLYETHYLENE (MIRALAX) 17 GM PACK PO SCH (09:00)
[2023-02-06] MEDS: ENOXAPARIN INJ 40 MG/0.4 ML SYR SQ SCH ×2 (09:23→21:47)
--- NOTE | 2023-02-06 12:41 | Hospitalist Progress Note ---
Date of Service February 06, 2023 Assessment & Plan (1) Acute respiratory failure with hypoxia: Plan: Due to combined effects of interstitial lung disease and acute diastolic CHF. Continue supplemental oxygen per nasal cannula to maintain saturation greater than 90%. Wean off as tolerated. He is COVID-positive and could have viral pneumonia also. Multifocal opacities seen on CT which may represent viral pneumonia versus superimposed pneumonia. Received empiric Rocephin/doxycycline in ER. He is diuresing well with intravenous Lasix. Chest x-ray on February 05, looks better. We will repeat chest x-ray every 2 days while he is here (2) Acute exacerbation of CHF (congestive heart failure): Plan: Suspected acute diastolic congestive heart failure. Continue Lasix diuresis. Frequency of dosing taper down to once daily today, February 06. Monitor intake and output. Serial chest x-ray every 2 days. Improving (3) Non-ST elevation AL (NSTEMI): Plan: Ruled out. Troponin is minimally elevated but no evidence of acute AL (4) COVID-19: Plan: Positivity noted. Symptomatic care. Difficult to say whether he has any current component of viral pneumonia. He has chronic interstitial lung disease and CHF at this time that is being treated. (5) IPF (idiopathic pulmonary fibrosis): Plan: Supportive care. Treat CHF. Oxygen supplementation as needed Plan He apparently lives at [facility]. OT and PT assessments appreciated . He probably will need to go to SNF first before he can go back to his usual living arrangements. Admission and Anticipated Discharge Date Admission Date: February 03, 2023 Subjective Alert and oriented. No acute distress. He is aware he may need SNF placement prior to return to independent living. He continues with brisk diuresis. Creatinine remained stable. We will decrease intravenous Lasix to once daily dosing. Continue IV steroids for now Review of Systems Review of Systems: Constitutional-no fever or chills ENT-no blurred vision, no double vision, no epistaxis, no sore throat Respiratory-no cough, no wheezing. Shortness of breath with minimal exertion Cardiac-no palpitations, no chest pain, no syncope GI-no nausea, vomiting, diarrhea, melena, hematochezia -no urinary retention, no urinary incontinence, no dysuria, no hematuria Musculoskeletal-no joint pain, no muscle tenderness Skin-no bruising, no rashes, no pruritus Neuro-no isolated weakness, no paresthesia, no weakness Psych-no depression, no anxiety Physical Exam Physical Exam: General-alert and oriented x3, no fevers, no chills HEENT-head atraumatic and normocephalic, pupils equal and reactive to light, extraocular muscles intact Neck-no lymphadenopathy or thyromegaly, trachea midline Chest-bibasilar fine and coarse inspiratory rales. No rhonchi. No wheezing. Cardiac-regular rate and rhythm, normal S1 and S2 Abdomen-normal bowel sounds, nontender, no hepatosplenomegaly Extremities-no cyanosis, clubbing, or edema Neuro-cranial nerves II through XII intact, motor and sensory function within normal limits, strength symmetrical , no focal deficits Psych-normal affect, normal mood Results & Data Results & Data ([facility]) Vital Signs (Past 12 Hours) Vital Signs Temp Pulse Pulse Resp BP Pulse Ox O2 Del Method 02/06/23 11:45 36.8 C 74 20 121/77 95 Nasal Cannula 02/06/23 08:00 53 L 02/06/23 08:00 Nasal Cannula 02/06/23 07:46 36.4 C L 79 20 115/62 92 Nasal Cannula 02/06/23 03:19 36.5 C 75 18 112/71 93 Nasal Cannula 02/06/23 03:17 36.6 C 66 20 113/79 95 Nasal Cannula O2 Flow Rate 02/06/23 11:45 5 02/06/23 08:00 02/06/23 08:00 4 02/06/23 07:46 6 02/06/23 03:19 6 02/06/23 03:17 7 Laboratory Results 02/06/23 06:27 02/06/23 06:27 PG Care Time/CCT Total # of Minutes Spent Total Time Spent with Patient: Total time spent is greater than 50% in coordination of care (as documented) at patient's floor/unit and/or counseling patient: Coding Level of Care Code 39645 SUB INP/OBS CARE 3/50MIN Diagnoses Acute respiratory failure with hypoxia J96.01 Acute exacerbation of CHF (congestive heart failure) I50.9 Non-ST elevation AL (NSTEMI) I21.4 COVID-19 U07.1 IPF (idiopathic pulmonary fibrosis) J84.112
[2023-02-06] MEDS: TERAZOSIN HCL 5 MG CAP PO SCH (21:48)
[2023-02-07 06:48] LABS: Basophils # (auto) 0.08 K/uL (0-0.2); Basophils % (auto) 0.7 %; Eosinophils # (auto) 0.03 K/uL (0-0.50); Eosinophils % (auto) 0.3 %; Hematocrit (blood only) 41.4 % (42.0-52.0); Hemoglobin 14.3 g/dl (14.0-18.0); Immature Granulocytes # (auto) 0.54 K/uL (0.01-0.20); Lymphocytes # (auto) 1.06 K/uL (1.2-3.4); Lymphocytes % (auto) 9.7 %; Mean Corpuscular Hgb Conc 34.5 g/dL (32.0-36.0); Mean Corpuscular Volume 101.5 fL (80.0-100.0); Mean Platelet Volume 9.7 fL (9.4-12.4); Monocytes # (auto) 1.04 K/uL (0.11-0.59); Monocytes % (auto) 9.6 %; Neutrophils # (auto) 8.13 K/uL (1.40-6.50); Neutrophils % (auto) 74.7 %; Nucleated RBC # (auto) 0.04 K/uL (0-0.12); Nucleated RBC % (auto) 0.4 %; Platelet Count 654 K/uL (130-400); RDW Coefficient of Variation 21.2 % (11.5-14.5); RDW Standard Deviation 78.4 fL (36.4-46.3); Red Blood Count 4.08 M/uL (4.70-6.10); White Blood Count 10.88 K/ul (4.8-10.8)
[2023-02-07 07:25] LABS: Anisocytosis Present; Polychromasia 1+; Tear Drop Cells 1+
[2023-02-07 07:36] LABS: BUN Creatinine Ratio 35.6 (10-20); Calcium 9.4 mg/dl (8.5-10.1); Creatinine Clr Calc Pharmacy 58.3 ml/min; Est GFR (African American) 77.1 ml/min; Est GFR (Non-African American) 66.6 ml/min; Potassium 4.6 mmol/L (3.5-5.1)
[2023-02-07] MEDS: guaiFENesin 600 MG TABCR PO SCH (07:57)
[2023-02-07] MEDS: DOCUSATE SODIUM 100 MG CAP PO SCH (07:58)
[2023-02-07] MEDS: ASPIRIN 81 MG CHEW PO SCH (07:58)
[2023-02-07] MEDS: FINASTERIDE 5 MG TAB PO SCH (07:58)
[2023-02-07] MEDS: CHOLECALCIFEROL 1,000 UNITS 25 MCG TAB PO SCH (07:58)
[2023-02-07] MEDS: POLYETHYLENE (MIRALAX) 17 GM PACK PO SCH (08:01)
[2023-02-07] MEDS: UMECLIDINIUM/VILANTEROL 62.5/25MCG 7 PUFFS/INHALER INH SCH (08:01)
[2023-02-07] MEDS ORDERED: predniSONE 10 MG TABLET PO SCH (09:00)
[2023-02-07] MEDS ORDERED: FUROSEMIDE 40 MG/4 ML VIAL IV SCH (09:00)
[2023-02-07] MEDS ORDERED: FUROSEMIDE 40 MG TAB PO SCH (09:00)
--- NOTE | 2023-02-07 10:46 | Discharge Summary ---
Date of Service February 07, 2023 Admission HPI Per Admitting Provider Toan Smalls is an 83-year-old male with a past medical history of idiopathic pulmonary fibrosis, hyperlipidemia, hypertension, BPH, and macrocytic anemia presented to the emergency department with shortness of breath and hypoxia. He does not have a prior history of CHF, on ER evaluation was hypoxic and had required 5 L nasal cannula in route due to SPO2 of the 60s which was increased to 15 L nonrebreather. Patient reports he has had 2 to 3 weeks of worsening shortness of breath, bilateral lower extremity edema, and easy fatigue. Enmanuel is seen at the bedside. He reports his breathing has been bad for many months, but has been especially bad over the last 2 weeks. He has had no chest pain, but has had increasing shortness of breath, inability to lay flat, and a constant cough for at least 1 week. Denies fever, chills. He is hungry, and has a good appetite. Denies nausea, vomiting, diarrhea, constipation. Denies focal weakness, endorses fatigue in the last 2 weeks. He is not on any blood thinners. Denies bleeding. He reports that he understands his medical condition, has never had heart failure and is surprised that he has COVID. Is DNR/DNI, is not sure if he would want intubation for declining respiratory status. Is agreeable to BiPAP. Does not have any family he would like called updated on his condition. with leukocytosis, hemoglobin 13.7, reactive thrombocytopenia of 788, sodium 135, mild transaminitis, BNP of 120, high-sensitivity troponin of 35.7, and a pending procalcitonin. His COVID is positive on admission. CTAchest: No evidence of PE. Multifocal airspace consolidation typical for infectious pneumonitis. Reactive enlarged mediastinal hilar lymph nodes. 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 below the thoracic outlet, patient at risk for steal phenomenon CXR: Multifocal airspace opacities, cardiomegaly, small pleural effusions Medical History: Reviewed Medications: Reviewed Surgical History: Reviewed Family history: Reviewed Allergies: Reviewed Social History: Reviewed Code Status: DNR/DNI Principal Diagnosis Acute diastolic CHF, acute hypoxic respiratory failure, COVID positivity on February 03 with possible pulmonary involvement, known chronic interstitial lung disease Discharge Exam General-alert and oriented x3, no fevers, no chills HEENT-head atraumatic and normocephalic, pupils equal and reactive to light, extraocular muscles intact Neck-no lymphadenopathy or thyromegaly, trachea midline Chest-bibasilar fine and coarse inspiratory rales. No rhonchi. No wheezing. Cardiac-regular rate and rhythm, normal S1 and S2 Abdomen-normal bowel sounds, nontender, no hepatosplenomegaly Extremities-no cyanosis, clubbing, or edema Neuro-cranial nerves II through XII intact, motor and sensory function within normal limits, strength symmetrical , no focal deficits Psych-normal affect, normal mood Discharge Data Allergies Allergy/AdvReac Type Severity Reaction Status Date / Time atorvastatin AdvReac Intermediate stomach Verified 07/10/22 14:24 upset doxycycline AdvReac Intermediate Gastrointestinal Verified 07/10/22 14:24 Upset Consultations 02/03/23 18:22 ED Decision to Admit Stat Ordered Studies 02/03/23 16:27 CT for pulmonary embolism PE [CT angio chest PE protocol] Stat Hospital Course (1) Acute respiratory failure with hypoxia: Due to combined effects of interstitial lung disease and acute diastolic CHF. Continue supplemental oxygen per nasal cannula to maintain saturation greater than 90%. Wean off as tolerated. He is COVID-positive and could have viral pneumonia also. Multifocal opacities seen on CT which may represent viral pneumonia versus superimposed pneumonia. Received empiric Rocephin/doxycycline in ER. He is diuresing well with intravenous Lasix. Lasix switched to oral dosing today, February 07. Serial chest x-rays continue to improve. Will wean oxygen off as tolerated (2) Acute exacerbation of CHF (congestive heart failure): Suspected acute diastolic congestive heart failure. Treated with intravenous Lasix diuresis while hospitalized. Switch to oral Lasix at discharge. (3) Non-ST elevation CA (NSTEMI): Ruled out. Troponin is minimally elevated but no evidence of acute CA (4) COVID-19: Positivity noted. Symptomatic care. Difficult to say whether he has any current component of viral pneumonia. He has chronic interstitial lung disease and CHF at this time that is being treated. (5) IPF (idiopathic pulmonary fibrosis): Supportive care. Treat CHF. Oxygen supplementation as needed. Wean off as tolerated Plan [facility] todayFebruary 07. Continue COVID isolation for 3 more days. Wean oxygen off as tolerated going forward. Total Time Total Time Spent Total Time Spent (In Minutes): 40 minutes Discharge Plan Discharge Items Patient Disposition: Transfer Intermediate Fac Reason For Visit: AHRF, COVID, CHF Discharge Diagnosis: COVID positivity, acute diastolic CHF, acute hypoxic respiratory failure, known interstitial lung disease Activity: Resume your previous activity Non-emergency contact: Primary Care Provider Call non-emergency contact if: you have any medication questions and your symptoms worsen Follow-up/Referrals: Kaya Mendez [Primary Care Provider] - Diet: Heart Healthy Addtl Attending Provider Instructions: Continue COVID isolation for 3 more days. Wean off oxygen as tolerated keeping oxygen saturation greater than 90% Pending Studies at Discharge: No Stand-Alone Forms: My [facility] Skilled Items Patient informed of condition?: Yes DNR: No Discharge Level of Care: Skilled Communicable Disease: Yes Discharge Prognosis: Stable Lines: None Urinary Catheter: No Medications and DC Order Prescriptions: New cholecalciferol (vitamin D3) [Vitamin D3] 25 mcg (1,000 unit) capsule 1,000 unit PO DAILY Qty: 10 0RF furosemide 40 mg tablet 40 mg PO DAILY Qty: 30 0RF prednisone 10 mg tablet See Rx Instructions .ROUTE .COMPLEX Qty: 12 0RF Rx Instructions: 10 mg orally 3 times a day for 2 days, then 10 mg twice a day for 2 days, then 10 mg once a day for 2 days, then stop Continued terazosin 5 mg capsule 5 mg PO HS Qty: 90 3RF finasteride 5 mg tablet 5 mg PO DAILY Qty: 90 3RF diphenhydramine-acetaminophen [Tylenol PM Extra Strength] 25-500 mg Tablet 2 tab PO HS aspirin 81 mg Tablet,Chewable 81 mg PO DAILY cholecalciferol (vitamin D3) [Vitamin D3] 25 mcg (1,000 unit) Capsule 1,000 mcg PO DAILY albuterol sulfate 2.5 mg /3 mL (0.083 %) solution for nebulization 2.5 mg continuous nebulization QID PRN (Reason: Shortness Of Breath) Anoro Ellipta 62.5-25 mcg/actuation blister with device 1 ea INHALATION DAILY Discontinued guaifenesin [Mucinex] 600 mg Tablet Extended Release 12hr 600 mg PO BID Discharge Orders: Discharge Order (Routine); Ordered 02/07/23 Ordered By: Aristeo Lee Admission Data Admit Date/Time: 02/03/23 19:01 Attending Provider: Aristeo Lee Admit Provider: Saqib Pate Primary Care Provider: Kaya Mendez Other Providers: Saqib Pate Coding Level of Care Code 27419 INP/OBS DISCH >30 MIN Diagnoses Acute respiratory failure with hypoxia J96.01 Acute exacerbation of CHF (congestive heart failure) I50.9 Non-ST elevation CA (NSTEMI) I21.4 COVID-19 U07.1 IPF (idiopathic pulmonary fibrosis) J84.112
[2023-02-07] MEDS: ENOXAPARIN INJ 40 MG/0.4 ML SYR SQ SCH (11:14)
--- NOTE | 2023-02-07 17:52 | XRay Report ---
XR chest 1V portable CLINICAL HISTORY: CHF, ILD ( Thursday ) TECHNIQUE: Single frontal radiograph of the chest was obtained. Comparison: Comparison is made to chest radiograph 02/05/2023 FINDINGS: No lines and tubes are seen. Calcified aortic knob is seen. Multifocal airspace opacities are seen. L ungs are underinflated. No evidence of pleural effusion or pneumothorax. IMPRESSION: Lungs are underinflated. There is apparent mild improvement in previously noted pulmonary edema. Inte rstitial thickening likely multifocal airspace opacities are unchanged. ACT 112: Negative or not required by law. Electronically signed by: Baron Gabriel M.D. 02/07/2023 5:51 PM
== END 2023-02-07 13:30 | DRG 291 ==
LOC: ED 15:57 → SUATTDRO 19:01 → 2S 19:01

== ENCOUNTER 2023-02-19 11:00 | Inpatient (IN) ==
[2023-02-19] MEDS ORDERED: XOPENEX/ATROVENT 1.25mg/0.5MG NEB COMBO NEB STA (11:20)
[2023-02-19] MEDS ORDERED: LEVALBUTEROL 1.25MG/0.5ML NEB INH STA (11:30)
[2023-02-19] MEDS ORDERED: SODIUM CHLORIDE 0.9% 1000ML 1,000 ML IV SCH (11:30)
[2023-02-19] MEDS ORDERED: LEVALBUTEROL 1.25MG/0.5ML NEB INH SCH (11:30)
[2023-02-19] MEDS ORDERED: IPRATROPIUM BROMIDE NEB SOLN 0.02% 2.5 ML VIAL INH SCH (11:30)
[2023-02-19] MEDS ORDERED: IPRATROPIUM BROMIDE NEB SOLN 0.02% 2.5 ML VIAL INH STA (11:30)
[2023-02-19 11:33] LABS: Basophils % (auto) 0.9 %; Eosinophils # (auto) 0.35 K/uL (0-0.50); Eosinophils % (auto) 3.1 %; Hematocrit (blood only) 37.5 % (42.0-52.0); Hemoglobin 12.5 g/dl (14.0-18.0); Immature Granulocytes # (auto) 0.34 K/uL (0.01-0.20); Immature Granulocytes % (auto) 3.1 %; Lymphocytes # (auto) 1.24 K/uL (1.2-3.4); Lymphocytes % (auto) 11.2 %; Mean Corpuscular Hemoglobin 34.2 pg (25.0-34.0); Mean Corpuscular Hgb Conc 33.3 g/dL (32.0-36.0); Mean Corpuscular Volume 102.7 fL (80.0-100.0); Mean Platelet Volume 9.6 fL (9.4-12.4); Monocytes # (auto) 0.83 K/uL (0.11-0.59); Monocytes % (auto) 7.5 %; Neutrophils # (auto) 8.26 K/uL (1.40-6.50); Neutrophils % (auto) 74.2 %; Nucleated RBC # (auto) 0.02 K/uL (0-0.12); Nucleated RBC % (auto) 0.2 %; Platelet Count 498 K/uL (130-400); RDW Coefficient of Variation 22.5 % (11.5-14.5); RDW Standard Deviation 85.7 fL (36.4-46.3); Red Blood Count 3.65 M/uL (4.70-6.10); White Blood Count 11.12 K/ul (4.8-10.8)
--- NOTE | 2023-02-19 11:37 | Emergency Department Note ---
Impression & Plan Palpitation, SVT (supraventricular tachycardia), Dyspnea ED Provider Note ED Provider Note NAME: RAMONA MANUEL AGE:83 SEX: Male : 1940 ARRIVES VIA: EMS INFORMANT: Patient ED PROVIDER(s): Neena Fry DO CHIEF COMPLAINT: Palpitations, weakness HPI: This is an 83-year-old male presents emergency department via EMS after an episode of weakness, dizziness, and being found to have a dysrhythmia this morning. Patient states he has been at rehab in [facility] after recent hospitalization for shortness of breath and COVID. He states since that time he has been on 6 L/min via nasal cannula daily. He states he woke up this morning feeling more weak and slightly dizzy compared to normal. He states he went to the nurses station to get checked out and they noted he was significantly tachycardic. They called EMS who reported he was in SVT and gave him adenosine. Upon arrival here he was in a normal sinus rhythm in the upper 90s. Patient states he does feel better following the administration of this medication. He denies any prior dysrhythmias or episodes of palpitations. He states he has been taking breathing treatments as scheduled. He states he was recently on prednisone following his hospitalization. He denies leg swelling or increased weight. PAST MEDICAL HISTORY:See Below PAST SURGICAL HISTORY:See Below FAMILY HISTORY:See Below SOCIAL HISTORY:See Below HOME MEDICATIONS:See Below ALLERGIES:See Below VITALS:See Below PHYSICAL EXAMINATION: GENERAL: alert, well appearing, well nourished, no distress, non-toxic EYE EXAM: normal conjunctiva, PERRL and EOM's grossly intact OROPHARYNX: no exudate, no erythema, lips, buccal mucosa, and tongue normal and mucous membranes are moist NECK: supple, no nuchal rigidity, no adenopathy, non-tender LUNGS: Decreased bilateral to auscultation. Normal chest wall mechanics, no r/r, scattered expiratory wheeze bilaterally, tachypnea noted, no retractions or increased work of breathing HEART: no murmurs, S1 normal and S2 normal ABDOMEN: abdomen soft, non-tender, normo-active bowel sounds, no masses, no rebound or guarding. BACK: Back is symmetrical on inspection and there is no deformity, no midline tenderness, no CVA tenderness. SKIN: no rashes, petechiae, orbruising UPPER EXTREMITIES: upper extremities are grossly normal. FROM, nml pulses b/l. LOWER EXTREMITIES: No pitting edema. FROM, nml pulses b/l. NEURO EXAM: Normal sensorium, cranial nerves II-XII grossly intact, normal speech, no facial droop,nogross weakness of arms, no gross weakness of legs. Gross sensation intact. No ataxia. Vital Signs: reviewed and remarkable Differential Diagnosis: Dysrhythmia, CHF, COPD exacerbation, pneumonia, COBY, electrolyte abnormality, as well as others were considered MEDICAL DECISION MAKING: This is an 83-year-old male presents emergency department due to concern initially for dizziness and weakness followed by finding of SVT by EMS and use of adenosine to convert back to a normal sinus rhythm. Patient did feel improved upon arrival here, although was still wearing oxygen via nasal cannula which he had required since recent hospitalization for pneumonia and COVID. Labs drawn and sent, IV established, due to concern for etiology given no dysrhythmia, as well as consideration for recent COVID, patient sent for CT erwin ography of the chest. Patient's labs reassuring, elevated troponin was noted however likely secondary to demand due to tachycardia that was noted on review of tracings. Patient was noted to have significant increased work of breathing and hypoxia with any attempt at position change even without ambulation. Patient required additional oxygen above his usual 6 L/min he has been on since discharge. Patient had no further dysrhythmia while monitored in the emergency room. Due to concern for monitoring, and increased dyspnea and hypoxia, case discussed with hospitalist for additional evaluation management. Consultation(s): 1335: Discussed with [facility] hospitalist team. ER Treatment Provided: See below 1130: Nursing staff noted upon helping him to the bathroom to urinate patient became significantly dyspneic and while on oxygen, dropped into the 80s. He was transitioned over to a nonrebreather and sat back down with eventual recovery and improvement. Diagnostics Interpreted By Me: -ECG: Normal sinus at 93, leftward axis, normal QRS and QTc, nonspecific ST/T wave changes -Cardiac Monitoring: An order was placed for continuous cardiac monitoring. The monitor shows a rate of 92 with normal sinus rhythm. -Laboratory studies: As stated above and show below. -Imaging studies: Triage Nursing Note Reviewed Prior/Outside Records Reviewed -cardiac tracings from EMS reviewed Procedures: [] Critical Care: [] Past Med/Surg History Medical History (Updated 02/19/23 @ 16:04 by Tanya Cast MD, [facility]) Anemia BPH (benign prostatic hyperplasia) BPH with obstruction/lower urinary tract symptoms HLD (hyperlipidemia) HTN (hypertension) Interstitial lung disease Surgical History Hx of appendectomy Family History Other No pertinent family history Social History Smoking Status: Former smoker Tobacco Type: Cigarettes Age Started Using Tobacco: 17; Age Quit Using Tobacco: 73; packs per day: 1; Hx Alcohol Use: No Hx Substance Use: No Preferred Language: Azeri Communication Ability: Effective Septic Tank Setter Required: No Beliefs That Will Affect Care: None Current Living Situation: Personal Care Facility current occupational status: retired Feels Safe at Home: Yes Safety Concerns: Feels Safe At This Time during the past year weight has: remained stable Dental Care, Regularly: Yes Physical Activity Frequency: Does not Exercise Seatbelt Use: always Assistive Devices: Glasses, Hearing Aid - Bilateral and Walker Assistive Devices Comment: anthony not here on admission Allergies Allergies Allergy/AdvReac Type Severity Reaction Status Date / Time atorvastatin AdvReac Intermediate stomach Verified 02/19/23 13:41 upset doxycycline AdvReac Intermediate Gastrointestinal Verified 02/19/23 13:41 Upset Home Meds Home Medications Medication Instructions Recorded Confirmed diphenhydramine 25 2 tab PO HS 11/10/18 02/19/23 mg-acetaminophen 500 mg tablet (Tylenol PM Extra Strength) aspirin 81 mg chewable tablet 81 mg PO DAILY 11/26/21 02/19/23 cholecalciferol (vitamin D3) 25 1,000 mcg PO DAILY 11/26/21 02/19/23 mcg (1,000 unit) capsule (Vitamin D3) albuterol sulfate 2.5 mg/3 mL 2.5 mg continuous nebulization QID 02/03/23 02/19/23 (0.083 %) solution for nebulization PRN Shortness Of Breath umeclidinium 62.5 mcg-vilanterol 1 ea inhalation DAILY 02/03/23 02/19/23 25 mcg/actuation powdr for inhalation (Anoro Ellipta) acetaminophen 325 mg tablet 650 mg PO Q4 PRN Fever Or Pain 02/19/23 02/19/23 (Tylenol) docusate sodium 100 mg capsule 100 mg PO DAILY 02/19/23 02/19/23 polyethylene glycol 3350 17 gram 17 g PO DAILY 02/19/23 02/19/23 oral powder packet (Miralax) triamcinolone acetonide 0.1 % 1 applic topical BID 02/19/23 02/19/23 topical cream Previous Rx's Medication Instructions Recorded finasteride 5 mg tablet 5 mg PO DAILY #90 tabs 12/04/22 terazosin 5 mg capsule 5 mg PO HS #90 caps 01/12/23 furosemide 40 mg tablet 40 mg PO DAILY #30 tabs 02/07/23 Results & Data (ED) Vital Signs Vital Signs - 24 hr 02/19/23 11:16 02/19/23 11:16 02/19/23 11:16 Temperature 36.6 C Temperature Source Oral Pulse Rate 90 Pulse Rate [Apical] Pulse Rhythm [Apical] Pulse Strength Normal Respiratory Rate 30 H Respiratory Effort / Characteristics Labored Spontaneous Labored Short of Breath SOB on Exertion Respiratory Depth Deep Deep Respiratory Pattern Tachypnea Tachypnea Blood Pressure 104/66 Blood Pressure [Right Arm] Blood Pressure Mean 78 Blood Pressure Mean [Right Arm] Blood Pressure Position Lying Blood Pressure Position [Right Arm] Pulse Oximetry 96 82 L Oxygen Delivery Method Nasal Cannula Nasal Cannula Nasal Cannula Oxygen Flow Rate 6 6 6 Sepsis Recent Fever Within 48 Hours No Sepsis New/Unexplained Change in Mental Status No Sepsis Action Taken by Nursing No Action Required Oxygen Flow Rate - Titration 15 Pulse Oximetry Post Tiitration 97 02/19/23 11:16 02/19/23 12:15 02/19/23 13:02 Temperature Temperature Source Pulse Rate 88 Pulse Rate [Apical] 90 87 Pulse Rhythm [Apical] Regular Pulse Strength Respiratory Rate 30 H 31 H Respiratory Effort / Characteristics Spontaneous Labored Short of Breath SOB on Exertion Spontaneous Short of Breath Respiratory Depth Deep Deep Respiratory Pattern Tachypnea Tachypnea Blood Pressure Blood Pressure [Right Arm] 104/66 100/72 Blood Pressure Mean Blood Pressure Mean [Right Arm] 78 81 Blood Pressure Position Blood Pressure Position [Right Arm] Lying Lying Pulse Oximetry 96 95 Oxygen Delivery Method Nasal Cannula Oxymask Oxygen Flow Rate 6 9 Sepsis Recent Fever Within 48 Hours Sepsis New/Unexplained Change in Mental Status Sepsis Action Taken by Nursing Oxygen Flow Rate - Titration Pulse Oximetry Post Tiitration Laboratory Data 02/19/23 11:11 02/19/23 11:11 Lab Results 02/19/23 02/19/23 02/19/23 Range/Units 11:11 11:11 11:11 WBC 11.12 H (4.8-10.8) K/ul RBC 3.65 L (4.70-6.10) M/uL Hgb 12.5 L (14.0-18.0) g/dl Hct 37.5 L (42.0-52.0) % MCV 102.7 H (80.0-100.0) fL MCH 34.2 H (25.0-34.0) pg MCHC 33.3 (32.0-36.0) g/dL RDW Std Deviation 85.7 H (36.4-46.3) fL RDW Coeff of Jennifer 22.5 H (11.5-14.5) % Plt Count 498 H (130-400) K/uL MPV 9.6 (9.4-12.4) fL Immature Gran % (Auto) 3.1 % Neut % (Auto) 74.2 % Lymph % (Auto) 11.2 % [place] % (Auto) 7.5 % Eos % (Auto) 3.1 % Baso % (Auto) 0.9 % Neut # (Auto) 8.26 H (1.40-6.50) K/uL Lymph # (Auto) 1.24 (1.2-3.4) K/uL [place] # (Auto) 0.83 H (0.11-0.59) K/uL Eos # (Auto) 0.35 (0-0.50) K/uL Baso # (Auto) 0.10 (0-0.2) K/uL Immature Gran # (Auto) 0.34 H (0.01-0.20) K/uL Absolute Nucleated RBC 0.02 (0-0.12) K/uL Nucleated RBC % (auto) 0.2 % Anisocytosis Present Tear Drop Cells 1+ Sodium 136 (136-145) mmol/L Potassium 4.0 (3.5-5.1) mmol/L Chloride 98 (98-107) mmol/L Carbon Dioxide 34 H (21-32) mmol/L Anion Gap 4 (3-11) BUN 18 (6-23) mg/dl Creatinine 1.03 (0.6-1.4) mg/dl Est Cr Clr Drug Dosing Not Reportable Est GFR ( Amer) 78.0 ml/min Est GFR (Non-Af Amer) 67.3 ml/min BUN/Creatinine Ratio 17.5 (10-20) Glucose 156 H (70-99(Fasting)) mg/dl Calcium 8.9 (8.6-10.3) mg/dl Magnesium 2.2 (1.7-2.4) mg/dl Total Bilirubin 0.9 (0.2-1.0) mg/dl AST 30 (13-39) U/L ALT 39 (7-52) U/L Alkaline Phosphatase 94 (34-104) U/L Troponin I High Sens 51.9 H* (0-20) pg/ml B-Natriuretic Peptide 56 (0-100) pg/ml Total Protein 6.2 (6.0-8.3) gm/dl Albumin 3.2 L (3.4-5.0) gm/dl Globulin 3.0 (2.5-4.0) gm/dl Albumin/Globulin Ratio 1.1 (0.9-2) Lipase 12 (11-82) U/L TSH (0.300-4.500) uIu/ml Adenovirus (PCR) (NotDetected) B. pertussis DNA (PCR) (NotDetected) B.parapertussis DNA PCR (NotDetected) C. pneumoniae DNA (PCR) (NotDetected) Coronavirus OC43 (PCR) (NotDetected) Coronavirus HKU1 (PCR) (NotDetected) Coronavirus 229E (PCR) (NotDetected) SARS-CoV-2 (PCR) (NotDetected) Coronavirus NL63 (PCR) (NotDetected) Human Metapneumovir PCR (NotDetected) Influenza Type A (PCR) (NotDetected) Influenza Type B (PCR) (NotDetected) M. pneumoniae (PCR) (NotDetected) Parainfluenza 1 (PCR) (NotDetected) Parainfluenza 2 (PCR) (NotDetected) Parainfluenza 3 (PCR) (NotDetected) Parainfluenza 4 (PCR) (NotDetected) RSV (PCR) (NotDetected) Entero/Rhino (PCR) (NotDetected) 02/19/23 02/19/23 Range/Units 11:11 12:47 WBC (4.8-10.8) K/ul RBC (4.70-6.10) M/uL Hgb (14.0-18.0) g/dl Hct (42.0-52.0) % MCV (80.0-100.0) fL MCH (25.0-34.0) pg MCHC (32.0-36.0) g/dL RDW Std Deviation (36.4-46.3) fL RDW Coeff of Jennifer (11.5-14.5) % Plt Count (130-400) K/uL MPV (9.4-12.4) fL Immature Gran % (Auto) % Neut % (Auto) % Lymph % (Auto) % [place] % (Auto) % Eos % (Auto) % Baso % (Auto) % Neut # (Auto) (1.40-6.50) K/uL Lymph # (Auto) (1.2-3.4) K/uL [place] # (Auto) (0.11-0.59) K/uL Eos # (Auto) (0-0.50) K/uL Baso # (Auto) (0-0.2) K/uL Immature Gran # (Auto) (0.01-0.20) K/uL Absolute Nucleated RBC (0-0.12) K/uL Nucleated RBC % (auto) % Anisocytosis Tear Drop Cells Sodium (136-145) mmol/L Potassium (3.5-5.1) mmol/L Chloride (98-107) mmol/L Carbon Dioxide (21-32) mmol/L Anion Gap (3-11) BUN (6-23) mg/dl Creatinine (0.6-1.4) mg/dl Est Cr Clr Drug Dosing Est GFR ( Amer) ml/min Est GFR (Non-Af Amer) ml/min BUN/Creatinine Ratio (10-20) Glucose (70-99(Fasting)) mg/dl Calcium (8.6-10.3) mg/dl Magnesium (1.7-2.4) mg/dl Total Bilirubin (0.2-1.0) mg/dl AST (13-39) U/L ALT (7-52) U/L Alkaline Phosphatase (34-104) U/L Troponin I High Sens (0-20) pg/ml B-Natriuretic Peptide (0-100) pg/ml Total Protein (6.0-8.3) gm/dl Albumin (3.4-5.0) gm/dl Globulin (2.5-4.0) gm/dl Albumin/Globulin Ratio (0.9-2) Lipase (11-82) U/L TSH 2.196 (0.300-4.500) uIu/ml Adenovirus (PCR) Not Detected (NotDetected) B. pertussis DNA (PCR) Not Detected (NotDetected) B.parapertussis DNA PCR Not Detected (NotDetected) C. pneumoniae DNA (PCR) Not Detected (NotDetected) Coronavirus OC43 (PCR) Not Detected (NotDetected) Coronavirus HKU1 (PCR) Not Detected (NotDetected) Coronavirus 229E (PCR) Not Detected (NotDetected) SARS-CoV-2 (PCR) Not Detected (NotDetected) Coronavirus NL63 (PCR) Not Detected (NotDetected) Human Metapneumovir PCR Not Detected (NotDetected) Influenza Type A (PCR) Not Detected (NotDetected) Influenza Type B (PCR) Not Detected (NotDetected) M. pneumoniae (PCR) Not Detected (NotDetected) Parainfluenza 1 (PCR) Not Detected (NotDetected) Parainfluenza 2 (PCR) Not Detected (NotDetected) Parainfluenza 3 (PCR) Not Detected (NotDetected) Parainfluenza 4 (PCR) Not Detected (NotDetected) RSV (PCR) Not Detected (NotDetected) Entero/Rhino (PCR) Not Detected (NotDetected) Administered Medications Albuterol (Albut/Ipratrop 3mg/0.5mg Neb 3 Ml Vial) 3 ml NEB QIDR WILBERT; Protocol Stop: 03/21/23 14:59 Last Admin: 02/19/23 14:30 Dose: 3 ml Documented By: GERSON Enoxaparin Sodium (Enoxaparin Inj 40 Mg/0.4 Ml Syr) 40 mg SQ Q24H WILBERT Stop: 03/21/23 16:59 Last Admin: 02/19/23 17:31 Dose: 40 mg Documented By: MALOU Guaifenesin (Guaifenesin Sugar Free 200 Mg/10 Ml Udc) 200 mg PO Q6H WILBERT Stop: 03/21/23 13:59 Last Admin: 02/19/23 15:06 Dose: 200 mg Documented By: GERSON Azithromycin 500 mg/ Dextrose 255 mls @ 125 mls/hr IV DAILY WILBERT Stop: 02/26/23 16:14 Last Admin: 02/19/23 17:31 Dose: 125 mls/hr Documented By: MALOU Dexamethasone 6 mg/ Syringe 1.5 mls @ 1 mls/min IV Q24H WILBERT Stop: 03/21/23 16:14 Last Admin: 02/19/23 17:31 Dose: 1 mls/min Documented By: MALOU Discontinued Medications Sodium Chloride (Nss 1000ml) 1,000 mls @ 125 mls/hr IV .Q8H WILBERT Stop: 03/21/23 11:29 Last Infusion: 02/19/23 16:20 Dose: 0 mls/hr Documented By: Admin: 02/19/23 11:34 Dose: 125 mls/hr Documented By: ALLIE Ioversol (Optiray 320 500ml) 112 ml IV ONCE ONE Stop: 02/19/23 12:25 Last Admin: 02/19/23 12:24 Dose: 112 ml Documented By: CHANDNI Ipratropium Mchenry (Ipratropium Mchenry Neb Soln 0.02% 2.5 Ml Vial) 0.5 mg INH NOW STA Stop: 02/19/23 11:31 Last Admin: 02/19/23 11:31 Dose: 0.5 mg Documented By: HS Levalbuterol HCl (Levalbuterol 1.25mg/0.5ml Neb) 1.25 mg INH NOW STA Stop: 02/19/23 11:31 Last Admin: 02/19/23 11:31 Dose: 1.25 mg Documented By: ALLIE Imaging Data Radiologist's Impression: Chest CTA 02/19/23 11:19 CT angio chest PE protocol CLINICAL HISTORY: PE TECHNIQUE: Multidetector row helical CT of the chest was performed with angiographic protocol. Coronal and sagittal reformations were obtained. Coronal and sagittal MIPS were obtained from the axial data set and were submitted for review. Automated dose lowering techniques and/or adjustment according to patient size were utilized for this exam. CT DOSE: 535.40 mGy.cm Comparison: Comparison is made to CT thorax 02/03/2023 FINDINGS: Lungs and pleura: Extensive interstitial changes are noted. Redemonstration of a 5 mm pulmonary nodule in the right upper lobe (series 4 image 196). Heart and pericardium: Cardiomegaly is seen with biatrial enlargement. Vessels: Evaluation for pulmonary embolism is limited due to patient motion. No evidence of central, lobar, or segmental embolus. The pulmonary trunk measures 33 mm. 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 Chest wall and lower neck: Unremarkable. Abdomen: Nonobstructive nephrolithiasis is seen. Bones: Degenerative changes in the thoracic spine. IMPRESSION: 1. No pulmonary embolus is seen although exam is limited by patient motion. 2. Interstitial thickening and pulmonary hypertension. ACT 112: Negative or not required by law. Electronically signed by: Baron Gabriel M.D. 02/19/2023 12:55 PM Discharge Plan Visit Data Chief Complaint: Tachycardia Stated Complaint: WEAKNESS, TACHYCARDIA ED Provider: Neena Fry Discharge Problem: Palpitation, SVT (supraventricular tachycardia), Dyspnea Patient Disposition: Admitted As Inpatient Discharge Instructions Interventions: ED Discharge Assessment Last Done: 02/19/23 16:14
[2023-02-19 11:53] LABS: Alanine Aminotransferase 39 U/L (7-52); Albumin Globulin Ratio 1.1 (0.9-2); Albumin Level 3.2 gm/dl (3.4-5.0); Alkaline Phosphatase 94 U/L (34-104); Anion Gap 4 (3-11); Aspartate Aminotransferase 30 U/L (13-39); BUN Creatinine Ratio 17.5 (10-20); Bilirubin,Total 0.9 mg/dl (0.2-1.0); Blood Urea Nitrogen 18 mg/dl (6-23); Calcium 8.9 mg/dl (8.6-10.3); Carbon Dioxide 34 mmol/L (21-32); Chloride 98 mmol/L (98-107); Est GFR (Non-African American) 67.3 ml/min; Glucose 156 mg/dl (70-99(Fasting)); Lipase 12 U/L (11-82); Magnesium 2.2 mg/dl (1.7-2.4); Sodium 136 mmol/L (136-145); Total Protein 6.2 gm/dl (6.0-8.3)
[2023-02-19 12:04] LABS: Troponin I High Sensitivity 51.9 pg/ml (0-20)
[2023-02-19 12:14] LABS: Anisocytosis Present; Tear Drop Cells 1+
[2023-02-19] MEDS ORDERED: OPTIRAY 320 500ml IV ONE (12:24)
--- NOTE | 2023-02-19 12:57 | CT Scan Report ---
CT angio chest PE protocol CLINICAL HISTORY: PE TECHNIQUE: Multidetector row helical CT of the chest was performed with angiographic protocol. Keating l and sagittal reformations were obtained. Coronal and sagittal MIPS were obtained from the axial sabrina a set and were submitted for review. Automated dose lowering techniques and/or adjustment according to patient size were utilized for this exam. CT DOSE: 535.40 mGy.cm Comparison: Comparison is made to CT thorax 02/03/2023 FINDINGS: Lungs and pleura: Extensive interstitial changes are noted. Redemonstration of a 5 mm pulmonary nodul e in the right upper lobe (series 4 image 196). Heart and pericardium: Cardiomegaly is seen with biatrial enlargement. Vessels: Evaluation for pulmonary embolism is limited due to patient motion. No evidence of central, lobar, or segmental embolus. The pulmonary trunk measures 33 mm. Redemonstration of stenosis of the p roximal left subclavian artery Mediastinum and billie: Subcentimeter lymph nodes are seen. Chest wall and lower neck: Unremarkable. Abdomen: Nonobstructive nephrolithiasis is seen. Bones: Degenerative changes in the thoracic spine. IMPRESSION: 1. No pulmonary embolus is seen although exam is limited by patient motion. 2. Interstitial thickening and pulmonary hypertension. ACT 112: Negative or not required by law. Electronically signed by: Baron Gabriel M.D. 02/19/2023 12:55 PM
--- NOTE | 2023-02-19 13:42 | History & Physical Report ---
Date of Service February 19, 2023 Assessment & Plan (1) SVT (supraventricular tachycardia): Plan: -Admit to the PCU on tele -Resolved after 6 mg and 12 mg of Adenosine administered by EMS -Patient has a previous hx of atrial premature complex but not SVT -Likely due to his acute illness and recent progression of his chronic lung disease -Last echo was noted to be on 02/04 which showed LVEF WNL and severe -For now monitor on tele (2) Acute respiratory failure with hypoxia: Plan: -The patient was discharged with 6L NC after his last admission on 02/07/23 -At this time the cause of his respiratory failure with hypoxia is likely multifactorial including his chronic lung disease, possible progression of his lung disease with recent covid infection, CHF, and bacterial infection -Patient noted to have a mild leukocytosis with left shift but also completed a recent course of prednisone on discharge, BNP today is WNL -Full respiratory biofire was negative, CTPE negative for PE but showing e xtensive interstitial changes -Will add on sputum culture and gram stain, procal, ESR, and CRP -Will consult Pulmonology for assistance with further evaluation and treatment as he follows with Dr. Field -Continue incentive spirometry, flutter therapy, QID DuoNebs, Scheduled robitussin -S/P 2 doses of albuterol and levalbuterol in the ED, will wait for further workup and pulm consult before starting antibiotics and systemic steroids -Prn O2 to keep SpO2 between 88-92% -Continue to monitor on tele and pulse oximetry -BL SCD's and Sub-Q lovenox for DVT PPX -AM CBC, CMP, mag, PT/INR -Spoke with infection control regarding the need for further isolation due to recent covid infection but negative full respiratory biofire today. They were comfortable discontinuing isolation at this time (3) Elevated troponin: Plan: -Initial high sen trop elevated at 51 -The patient is asymptomatic without acute ST segment or T-wave changes on ED ECG obtained after his SVT converted back to NSR -Likely due to demand from SVT and hypoxia -Will repeat at 2 hour high sen trop STAT then monitor q6h overnight -Continue to monitor on tele (4) (HFpEF) heart failure with preserved ejection fraction: Plan: -Last TTE was on 02/04 which showed HFpEF and severe aortic stenosis -Examines Euvolemic today with BNP WNL -Will continue 40 mg PO lasix daily at this time (5) HTN (hypertension): Plan: -Stable -Continue lasix (6) IPF (idiopathic pulmonary fibrosis): Plan: -see acute hypoxic respiratory failure (7) BPH with obstruction/lower urinary tract symptoms: Plan: -Continue terazosin and finasteride (8) Severe aortic stenosis: Plan The patient was discussed with Dr. Mcdonald at the time of the admission History of Present Illness Chief Complaint: SVT Primary Care Provider: [facility] Toan Smalls is an 83-year-old male with a past medical history of idiopathic pulmonary fibrosis, HFpEF (LVEF of 60-65% as of 02/04/23), Severe aortic stenosis, hyperlipidemia, hypertension, BPH, and macrocytic anemia who presented to the [facility] ED on 02/19/23 with a chief complaint of SVT noted at his residence at [facility]. Per the ED staff, the patient was found to be in SVT earlier today with HRs in the 180s. The patient was reportedly symptomatic with fatigue and weakness during the episode. EMS was called and administered 6 mg then 12 mg of Adenosine and the patient spontaneously converted to NSR in the 100s. In the ED the patie nt was found to be afebrile, hemodynamically stable, but hypoxic on his baseline 6L NC. Labs were significant for a leukocytosis of 11.12 (down from 11.8 as of 02/09/23), left shift of 8.26, stable Hgb of 12.5 with platelets of 498 (down from 602 as of 02/09), stable renal function 1.03, with glucose of 156 and stable electrolytes, LFTs WNL, initial high sen trop of 51, TSH WNL, and full respiratory biofire in process. CTA of the chest with PE protocol was read as "No pulmonary embolus is seen although exam is limited by patient motion. 2. Interstitial thickening and pulmonary hypertension.". Prior to admission the patient was given 2 doses of levalbuterol, 2 doses of Ipratropium, and 1L NSS bolus. Per chart review, the patient was last admitted from 02/03-02/07 due to acute hypoxic respiratory failure; he was also found to be Covid 19 positive. At the time of the admission he acute hypoxic respiratory failure was thought to mainly be due to his baseline idiopathic lung disease and acute diastolic CHF exacerbation. He was treated with IV Lasix and supplemental oxygen. He was discharged back to [facility] on 6L NC with a goal to continue to wean, 40 po Lasix daily, a 10 mg Prednisone taper over 6 days, and vitamin D. AT the time of the exam the patient was resting in bed in no acute distress, he was saturating at 97% on7L oxymask. I was able to wean his oxygen down to 6L Oxymask and he remained stable. He states that since discharge on 02/07 his respiratory status felt as though it was slowly improving. He states he was still on the 6L at [facility] but his breathing felt as though it was improving and his activity level was improving. This morning he had a friend visiting but felt weak and tired. He was evaluated by their staff who found him to be in SVT. He states that during the episode of SVT he felt tired but denies any recent chest pain, heart palpitations, or increased SOB. At the time of the exam he states he is currently feeling well and feels improved compared to this am. When asked, he states that he was taking the lasix as prescribed and finished the course of Prednisone as prescribed. He has a baseline COPD cough with white sputum production. He does not feel as though his cough has worsened and he denies increased sputum production and changes in sputum color. He denies recent fever, chills, chest pain, increased SOB, cough, sputum production, abd pain, nausea, vomiting, diarrhea, dysuria, hematuria, melena, LE swelling, and recent trauma. We discussed code status, he still wishes to be a DNR/DNI. Please refer to Dr. Mcdonald's attestation for any changes to the treatment plan Allergies Allergy/AdvReac Type Severity Reaction Status Date / Time atorvastatin AdvReac Intermediate stomach Verified 02/19/23 13:41 upset doxycycline AdvReac Intermediate Gastrointestinal Verified 02/19/23 13:41 Upset Home Medications Medication Instructions Recorded Confirmed Type diphenhydramine 25 2 tab PO HS 11/10/18 02/19/23 History mg-acetaminophen 500 mg tablet (Tylenol PM Extra Strength) aspirin 81 mg chewable tablet 81 mg PO DAILY 11/26/21 02/19/23 History cholecalciferol (vitamin D3) 25 1,000 mcg PO DAILY 11/26/21 02/19/23 History mcg (1,000 unit) capsule (Vitamin D3) finasteride 5 mg tablet 5 mg PO DAILY #90 tabs 12/04/22 02/19/23 Rx terazosin 5 mg capsule 5 mg PO HS #90 caps 01/12/23 02/19/23 Rx albuterol sulfate 2.5 mg/3 mL 2.5 mg continuous nebulization QID 02/03/23 02/19/23 History (0.083 %) solution for nebulization PRN Shortness Of Breath umeclidinium 62.5 mcg-vilanterol 1 ea inhalation DAILY 02/03/23 02/19/23 History 25 mcg/actuation powdr for inhalation (Anoro Ellipta) furosemide 40 mg tablet 40 mg PO DAILY #30 tabs 02/07/23 02/19/23 Rx acetaminophen 325 mg tablet 650 mg PO Q4 PRN Fever Or Pain 02/19/23 02/19/23 His tory (Tylenol) docusate sodium 100 mg capsule 100 mg PO DAILY 02/19/23 02/19/23 History polyethylene glycol 3350 17 gram 17 g PO DAILY 02/19/23 02/19/23 History oral powder packet (Miralax) triamcinolone acetonide 0.1 % 1 applic topical BID 02/19/23 02/19/23 History topical cream Past Med/Surg History Medical History (Updated 02/20/23 @ 11:46 by Shashank Mcdonald MD) Anemia BPH (benign prostatic hyperplasia) BPH with obstruction/lower urinary tract symptoms HLD (hyperlipidemia) HTN (hypertension) Interstitial lung disease Severe aortic stenosis Surgical History Hx of appendectomy Family History Other No pertinent family history Social History Smoking Status: Former smoker Tobacco Type: Cigarettes Age Started Using Tobacco: 17; Age Quit Using Tobacco: 73; packs per day: 1; Hx Alcohol Use: No Hx Substance Use: No Preferred Language: Micronesian Communication Ability: Effective System Designer Required: No Beliefs That Will Affect Care: None Current Living Situation: Personal Care Facility current occupational status: retired Feels Safe at Home: Yes Safety Concerns: Feels Safe At This Time during the past year weight has: remained stable Dental Care, Regularly: Yes Physical Activity Frequency: Does not Exercise Seatbelt Use: always Assistive Devices: Glasses, Hearing Aid - Bilateral and Walker Assistive Devices Comment: anthony not here on admission Review of Systems Review of Systems: Denies current fever, chills, headache, changes in vision, hearing, taste, and smell, chest pain, SOB, increased cough, abdominal pain, nausea, vomiting, diarrhea, hematemesis, melena, dysuria, hematuria, and recent falls. All systems have been reviewed and are otherwise negative. Physical Exam Physical Exam: Physical Exam: General: In no acute distress, stated age, well-nourished, chronically ill- appearing but non-toxic appearing HEENT: Normocephalic, atraumatic, no scleral icterus, pupils around round, symmetrical, and reactive to light, Oxymask currently in place, moist mucus membranes, trachea midline, no thyromegaly Chest/Pulm: No respiratory distress, symmetrical chest expansion, scattered expiratory wheezing and rhonchi throughout Cardiac: RRR, 4/6 murmur noted Abdomen: Negative for ascites and bruising, normoactive bowel sounds, soft, non-tender to palpation throughout Musculoskeletal: Symmetrical and without signs of acute trauma, upper and lower extremities with full ROM, no atrophy, spasticity, or flaccidity Extremities: Radial, dorsalis pedis, and posterior tibial pulses are intact and symmetrical, no edema noted in the BL LE's Skin: Warm, dry, no rashes , lesions, or scars noted Neuro: Alert and oriented to person, place, month, year, and president, no focal defects, CN II-XII tested and intact, no tremors noted Psych: No acute distress, calm and cooperative during the exam Results & Data Results & Data Vital Signs (Past 12 Hours) Vital Signs Temp Pulse Pulse Resp BP BP Pulse Ox 02/19/23 13:02 87 31 H 100/72 95 02/19/23 12:15 88 02/19/23 11:16 90 30 H 104/66 96 02/19/23 11:16 82 L 02/19/23 11:16 02/19/23 11:16 36.6 C 90 30 H 104/66 96 O2 Del Method O2 Flow Rate 02/19/23 13:02 Oxymask 9 02/19/23 12:15 02/19/23 11:16 Nasal Cannula 6 02/19/23 11:16 Nasal Cannula 6 02/19/23 11:16 Nasal Cannula 6 02/19/23 11:16 Nasal Cannula 6 Laboratory Results Abnormal lab results 02/19/23 02/19/23 Range/Units 11:11 11:11 WBC 11.12 H (4.8-10.8) K/ul RBC 3.65 L (4.70-6.10) M/uL Hgb 12.5 L (14.0-18.0) g/dl Hct 37.5 L (42.0-52.0) % MCV 102.7 H (80.0-100.0) fL MCH 34.2 H (25.0-34.0) pg RDW Std Deviation 85.7 H (36.4-46.3) fL RDW Coeff of Jennifer 22.5 H (11.5-14.5) % Plt Count 498 H (130-400) K/uL Neut # (Auto) 8.26 H (1.40-6.50) K/uL Reeves # (Auto) 0.83 H (0.11-0.59) K/uL Immature Gran # (Auto) 0.34 H (0.01-0.20) K/uL Carbon Dioxide 34 H (21-32) mmol/L Glucose 156 H (70-99(Fasting)) mg/dl Troponin I High Sens 51.9 H* (0-20) pg/ml Albumin 3.2 L (3.4-5.0) gm/dl Diagnostic Findings Chest CTA 02/19/23 11:19 CT angio chest PE protocol CLINICAL HISTORY: PE TECHNIQUE: Multidetector row helical CT of the chest was performed with angiographic protocol. Coronal and sagittal reformations were obtained. Coronal and sagittal MIPS were obtained from the axial data set and were submitted for review. Automated dose lowering techniques and/or adjustment according to patient size were utilized for this exam. CT DOSE: 535.40 mGy.cm Comparison: Comparison is made to CT thorax 02/03/2023 FINDINGS: Lungs and pleura: Extensive interstitial changes are noted. Redemonstration of a 5 mm pulmonary nodule in the right upper lobe (series 4 image 196). Heart and pericardium: Cardiomegaly is seen with biatrial enlargement. Vessels: Evaluation for pulmonary embolism is limited due to patient motion. No evidence of central, lobar, or segmental embolus. The pulmonary trunk measures 33 mm. 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 Chest wall and lower neck: Unremarkable. Abdomen: Nonobstructive nephrolithiasis is seen. Bones: Degenerative changes in the thoracic spine. IMPRESSION: 1. No pulmonary embolus is seen although exam is limited by patient motion. 2. Interstitial thickening and pulmonary hypertension. ACT 112: Negative or not required by law. Electronically signed by: Baron Gabriel M.D. 02/19/2023 12:55 PM ECG Additional Comments: Poor data quality, interpretation may be adversely affected Sinus rhythm with marked sinus arrhythmia Left anterior fascicular block Voltage criteria for left ventricular hypertrophy Abnormal ECG When compared with ECG of 03-FEB-2023 16:04, No significant change was found Code Status & VTE Plan Code Status DNR/DNI VTE Prophylaxis Plan VTE Prophylaxis will be ordered: Yes Supervising Physician Co-Signing Physician Notes I personally saw and examined the patient. I verified all haines points and agree with Patrick Berry PA-C with the following exceptions and/or additions: 83 year old presents to ER with increased HR and fatigue/weakness. Narrow complex tachycardia noted by EMS and converted to NSR with adenosine 6mg + 12mg IV. Recent diangosis of COVID-[address] with substantial changes [address] CT chest, improving today but still on 6LPM O2. He was not on oxygen prior to COVID-19 diagnosis. O/E A&Ox3, HS RRR, systolic LUSB, tachypnea, Chest bibasal crackles, no wheezing, Abdo SNT A/P SVT - monitor on telemetry for recurrence, noted EMS report but no strips available to review but no flutter waves mentioned when given adenosine and successful conversion supports diangosis of SVT. Yoan defer AV issa blockade on admission to see if episode recur with treatment for his COVID-19. Will defer cardiology consult unless recurs. Severe aortic stenosis - noted on prior admission, follow up with cardiology on discharge Abnormal CT - suspect resolving COVID-19 pneumonia, will get CRP and consult pulm given history of probable IPF and new oxygen requirement following COVID-19 diagnosis. PG Care Time/CCT Total # of Minutes Spent Total Time Spent with Patient: Total time spent is greater than 50% in coordination of care (as documented) at patient's floor/unit and/or counseling patient: Coding [place] [address] INT INP/OBS CARE 3/75MIN Patient Type Established Medical Decision Making High Complexity Diagnoses SVT (supraventricular tachycardia) I47.1 Acute respiratory failure with hypoxia J96.01 Elevated troponin R77.8 (HFpEF) heart failure with preserved ejection fraction I50.30 HTN (hypertension) I10 IPF (idiopathic pulmonary fibrosis) J84.112 BPH with obstruction/lower urinary tract symptoms N40.1; N13.8 Severe aortic stenosis I35.0
[2023-02-19 14:04] LABS: Adenovirus PCR Not Detected (NotDetected); Bordetella parapertussis PCR Not Detected (NotDetected); Bordetella pertussis PCR Not Detected (NotDetected); Chlamydia pneumoniae PCR Not Detected (NotDetected); Coronavirus 229E PCR Not Detected (NotDetected); Coronavirus CoV-2 (COVID19)PCR Not Detected (NotDetected); Coronavirus HKU1 PCR Not Detected (NotDetected); Coronavirus NL63 PCR Not Detected (NotDetected); Coronavirus OC43PCR Not Detected (NotDetected); Human Metapneumovirus PCR Not Detected (NotDetected); Influenza A PCR Not Detected (NotDetected); Influenza B PCR Not Detected (NotDetected); Mycoplasma pneumoniae PCR Not Detected (NotDetected); Parainfluenza Virus 1 PCR Not Detected (NotDetected); Parainfluenza Virus 2 PCR Not Detected (NotDetected); Parainfluenza Virus 3 PCR Not Detected (NotDetected); Parainfluenza Virus 4 PCR Not Detected (NotDetected); Respiratory Syncytial VirusPCR Not Detected (NotDetected); Rhinovirus/Enterovirus PCR Not Detected (NotDetected)
--- NOTE | 2023-02-19 14:18 | Electrocardiogram Report ---
Test Reason : Blood Pressure : / mmHG Vent. Rate : 093 BPM Atrial Rate : 093 BPM P-R Int : 162 ms QRS Dur : 102 ms QT Int : 366 ms P-R-T Axes : 014 -54 031 degrees QTc Int : 455 ms Poor data quality, interpretation may be adversely affected Sinus rhythm with marked sinus arrhythmia Left anterior fascicular block Voltage criteria for left ventricular hypertrophy Poor R wave progression, consider anterior [place] vs. lead placement vs. LVH Abnormal ECG When compared with ECG of 03-FEB-2023 16:04, No significant change was found Confirmed by Angel Hall ([id number]) on 02/19/2023 2:18:30 PM Referred By: Confirmed By:Cihntan Hall
[2023-02-19] MEDS: ALBUT/IPRATROP 3MG/0.5MG NEB 3 ML VIAL NEB SCH ×2 (14:30→19:13)
[2023-02-19] MEDS: guaiFENesin SUGAR FREE 200 MG/10 ML UDC PO SCH ×2 (15:06→21:37)
[2023-02-19 15:22] LABS: C Reactive Protein 2.38 mg/dl (0-0.5)
[2023-02-19 15:33] LABS: Troponin I High Sensitivity 91.3 pg/ml (0-20)
--- NOTE | 2023-02-19 15:59 | Pulmonary Consultation ---
Date of Consultation February 19, 2023 Assessment & Plan (1) (HFpEF) heart failure with preserved ejection fraction: (2) SVT (supraventricular tachycardia): (3) Acute and chronic respiratory failure with hypoxia: (4) Interstitial lung disease: (5) Cough: (6) COVID-19: (7) Ex-smoker: Plan CT chest 02/19/2023 personally reviewed: Patchy groundglass opacities appreciated bilaterally Honeycombing with traction bronchiectasis appreciated bilaterally upper lobes especially on the left upper Minimal mediastinal lymphadenopathy Cardiomegaly -- Acute on chronic hypoxic respiratory failure Worsening on patient's latest CT chest is likely from the recent COVID-19 pneumonia Patient was also in SVT which can cause flash pulmonary edema giving a similar presentation COVID-19 PCR negative, rest of the respiratory bio fire negative Patient tested for positive COVID on 02/03/2023 Procalcitonin 0.08, BNP 56, CRP 2.38 Nasal MRSA negative -- UIP-like pattern/ILD with restrictive lung dysfunction Follows up with Dr. Field as an outpatient Not on any treatment for ILD --Ex-smoker >[id number]-aron-caui smoking history On Anoro at home PFT 05/15/2022: Moderate restrictive lung dysfunction, insignificant bronchodilator response, moderate decrease in DLCO FEV1 2.01 L 68%, FVC 2.55 L 61%, TLC 63%, DLCO 52% Plan: Continue with O2 supplementation to keep O2 saturation between 90-92% BiPAP nightly and as needed shortness of breath Give the patchy groundglass opacities and worsening on the CAT scan I would treat the patient with Solu-Medrol 40 mg on a daily basis along with antibiotics to cover for atypical pneumonia Continue with diuretics Continue with Mucinex and flutter valve Please note the above document was generated using voice recognition software. It may contain grammatical, syntax or spelling errors.Any formal questions or concerns about the content, text or information contained within the body of this dictation should be directly addressed to the provider for clarification. History of Present Illness History of Present Illness 83-year-old male presented to the hospital with complaints of shortness of breath Past medical history: IPF, HFpEF, severe aortic stenosis, dyslipidemia, hypertension Patient was found to be in SVT, he was given 6 mg followed by 12 mg adenosine which converted to normal sinus rhythm. At the time of examination patient was back to his baseline oxygen requirement. Patient was saturating 92-93% on 6 L nasal cannula. He does desaturate very easily whenever he is doing mild exertion. He said he was doing well when it comes to his breathing. It is because of his rapid heart rate that he was sent to the hospital Denies any cough, no chest pain, no chest tightness, no wheezing, or diaphoresis Fair appetite No fever or chills No night sweats, no unintentional weight loss Denies any nausea or vomiting Social history: Greater than [id number] smoking history Quit at the age of 73 Allergies Allergy/AdvReac Type Severity Reaction Status Date / Time atorvastatin AdvReac Intermediate stomach Verified 02/19/23 13:41 upset doxycycline AdvReac Intermediate Gastrointestinal Verified 02/19/23 13:41 Upset Home Medications Medication Instructions Recorded Confirmed Type diphenhydramine 25 2 tab PO HS 11/10/18 02/19/23 History mg-acetaminophen 500 mg tablet (Tylenol PM Extra Strength) aspirin 81 mg chewable tablet 81 mg PO DAILY 11/26/21 02/19/23 History cholecalciferol (vitamin D3) 25 1,000 mcg PO DAILY 11/26/21 02/19/23 History mcg (1,000 unit) capsule (Vitamin D3) finasteride 5 mg tablet 5 mg PO DAILY #90 tabs 12/04/22 02/19/23 Rx terazosin 5 mg capsule 5 mg PO HS #90 caps 01/12/23 02/19/23 Rx albuterol sulfate 2.5 mg/3 mL 2.5 mg continuous nebulization QID 02/03/23 02/19/23 History (0.083 %) solution for nebulization PRN Shortness Of Breath umeclidinium 62.5 mcg-vilanterol 1 ea inhalation DAILY 02/03/23 02/19/23 History 25 mcg/actuation powdr for inhalation (Anoro Ellipta) furosemide 40 mg tablet 40 mg PO DAILY #30 tabs 02/07/23 02/19/23 Rx acetaminophen 325 mg tablet 650 mg PO Q4 PRN Fever Or Pain 02/19/23 02/19/23 History (Tylenol) docusate sodium 100 mg capsule 100 mg PO DAILY 02/19/23 02/19/23 History polyethylene glycol 3350 17 gram 17 g PO DAILY 02/19/23 02/19/23 History oral powder packet (Miralax) triamcinolone acetonide 0.1 % 1 applic topical BID 02/19/23 02/19/23 History topical cream Patient History Medical History (Updated 02/19/23 @ 16:04 by Tanya Cast MD, [facility]) Anemia BPH (benign prostatic hyperplasia) BPH with obstruction/lower urinary tract symptoms HLD (hyperlipidemia) HTN (hypertension) Interstitial lung disease Surgical History Hx of appendectomy Family History Other No pertinent family history Social History Smoking Status: Former smoker Tobacco Type: Cigarettes Age Started Using Tobacco: 17; Age Quit Using Tobacco: 73; packs per day: 1; Hx Alcohol Use: No Hx Substance Use: No Preferred Language: Liberian Communication Ability: Effective Insole Reinforcer Required: No Beliefs That Will Affect Care: None Current Living Situation: Personal Care Facility current occupational status: retired Feels Safe at Home: Yes Safety Concerns: Feels Safe At This Time during the past year weight has: remained stable Dental Care, Regularly: Yes Physical Activity Frequency: Does not Exercise Seatbelt Use: always Assistive Devices: Glasses, Hearing Aid - Bilateral and Walker Assistive Devices Comment: anthony not here on admission Review of Systems Review of Systems: All systems reviewed & are unremarkable except as noted in HPI & below Physical Exam Physical Exam: Constitutional: No acute distress HEENT: EOMI, PERRLA Respiratory system:Decreased air entry bilaterally, no wheeze, rhonchi, positive Velcro-like crackles appreciated bilaterally more on the left side CVS: S1-S2 positive, Positive 3 out of 6 systolic murmur appreciated best at the apex Abdomen: Soft, nontender, nondistended, positive bowel sounds x4 Extremities: +2 pulses bilaterally radialis/ dorsalis pedis, no cyanosis, +1 edema bilateral lower extremity Neuro: Awake alert oriented x3 Psych: Normal mood and affect G/U: Positive Noonan Skin: no rashes, warm and dry Lymphatic: no cervical or axillary lymphadenopathy Results & Data Results & Data Vital Signs (Past 12 Hours) Vital Signs Temp Pulse Pulse Resp BP BP Pulse Ox 02/19/23 15:05 88 30 H 107/67 95 02/19/23 13:02 87 31 H 100/72 95 02/19/23 12:15 88 02/19/23 11:16 90 30 H 104/66 96 02/19/23 11:16 82 L 02/19/23 11:16 02/19/23 11:16 36.6 C 90 30 H 104/66 96 O2 Del Method O2 Flow Rate 02/19/23 15:05 Oxymask 6 02/19/23 13:02 Oxymask 9 02/19/23 12:15 02/19/23 11:16 Nasal Cannula 6 02/19/23 11:16 Nasal Cannula 6 02/19/23 11:16 Nasal Cannula 6 02/19/23 11:16 Nasal Cannula 6 Laboratory Results 02/19/23 11:11 02/19/23 11:11 PG Care Time/CCT Total # of Minutes Spent Total Time Spent with Patient: Total time spent is greater than 50% in coordination of care (as documented) at patient's floor/unit and/or counseling patient: Coding Level of Care Code 68084 INT INP/OBS CARE MIN Diagnoses (HFpEF) heart failure with preserved ejection fraction I50.30 SVT (supraventricular tachycardia) I47.1 Acute and chronic respiratory failure with hypoxia J96.21 Interstitial lung disease J84.9 Cough R05.9 COVID-19 U07.1 Ex-smoker Z87.891
[2023-02-19] MEDS ORDERED: PNEUMOCOCCAL POLYSACCHARIDES 25 MCG/0.5 ML VIAL/SYR IM ONE (16:39)
[2023-02-19] MEDS: AZITHROMYCIN 500 MG in DEXTROSE 5% 250 ML IV SCH (17:31)
[2023-02-19] MEDS: dexAMETHasone 6 MG in SYRINGE 0 ML IV SCH (17:31)
[2023-02-19] MEDS: ENOXAPARIN INJ 40 MG/0.4 ML SYR SQ SCH (17:31)
[2023-02-19] MEDS: TERAZOSIN HCL 5 MG CAP PO SCH (20:46)
[2023-02-20] MEDS: guaiFENesin SUGAR FREE 200 MG/10 ML UDC PO SCH ×6 (03:01→23:53)
[2023-02-20 03:35] LABS: Basophils # (auto) 0.06 K/uL (0-0.2); Basophils % (auto) 0.6 %; Eosinophils # (auto) 0.02 K/uL (0-0.50); Eosinophils % (auto) 0.2 %; Hematocrit (blood only) 34.8 % (42.0-52.0); Hemoglobin 11.7 g/dl (14.0-18.0); Immature Granulocytes # (auto) 0.28 K/uL (0.01-0.20); Lymphocytes # (auto) 0.65 K/uL (1.2-3.4); Mean Corpuscular Hemoglobin 34.7 pg (25.0-34.0); Mean Corpuscular Hgb Conc 33.6 g/dL (32.0-36.0); Mean Corpuscular Volume 103.3 fL (80.0-100.0); Mean Platelet Volume 9.5 fL (9.4-12.4); Monocytes # (auto) 0.57 K/uL (0.11-0.59); Monocytes % (auto) 6.1 %; Neutrophils # (auto) 7.74 K/uL (1.40-6.50); Neutrophils % (auto) 83.1 %; Platelet Count 428 K/uL (130-400); RDW Coefficient of Variation 22.6 % (11.5-14.5); RDW Standard Deviation 86.4 fL (36.4-46.3); Red Blood Count 3.37 M/uL (4.70-6.10); White Blood Count 9.32 K/ul (4.8-10.8)
[2023-02-20 03:55] LABS: Albumin Globulin Ratio 1.1 (0.9-2); Albumin Level 3.1 gm/dl (3.4-5.0); BUN Creatinine Ratio 21.7 (10-20); Bilirubin,Total 0.6 mg/dl (0.2-1.0); Calcium 8.5 mg/dl (8.6-10.3); Creatinine Clr Calc Pharmacy 73.1 ml/min; Est GFR (Non-African American) 81.9 ml/min; Globulin 2.7 gm/dl (2.5-4.0); Magnesium 2.3 mg/dl (1.7-2.4); Potassium 4.4 mmol/L (3.5-5.1); Total Protein 5.8 gm/dl (6.0-8.3)
[2023-02-20 04:03] LABS: Anisocytosis Present; Poikilocytosis Present; Polychromasia 1+
[2023-02-20 04:10] LABS: Prothrombin Time 10.5 Seconds (9.0-12.0)
[2023-02-20] MEDS: ALBUT/IPRATROP 3MG/0.5MG NEB 3 ML VIAL NEB SCH ×4 (07:19→18:52)
[2023-02-20] MEDS: FINASTERIDE 5 MG TAB PO SCH (08:44)
[2023-02-20] MEDS: UMECLIDINIUM/VILANTEROL 62.5/25MCG 7 PUFFS/INHALER INH SCH (08:44)
[2023-02-20] MEDS: FUROSEMIDE 40 MG TAB PO SCH (08:44)
[2023-02-20] MEDS: DOCUSATE SODIUM 100 MG CAP PO SCH (08:44)
[2023-02-20] MEDS: ASPIRIN 81 MG CHEW PO SCH (08:44)
[2023-02-20] MEDS: AZITHROMYCIN 500 MG in DEXTROSE 5% 250 ML IV SCH (08:48)
[2023-02-20] MEDS: dilTIAZem HCL 30 MG TAB PO SCH ×3 (09:47→20:44)
--- NOTE | 2023-02-20 10:08 | XRay Report ---
XR chest 2V PA/lateral CLINICAL HISTORY: COPD/ILD COMPARISON STUDY: Chest radiograph February 07, 2023. Chest CT February 19, 2023. FINDINGS: No pneumothorax or pleural effusion is noted. Low lung volumes are again noted with elevati on of the right hemidiaphragm. This is unchanged. Interstitial thickening and bilateral opacities are similar to prior chest CT. The appearance of the chest is unchanged. Cardiomegaly is unchanged. IMPRESSION: No change in appearance of the chest. Diffuse interstitial thickening with multilevel fo bianca airspace opacities which favor an infectious process superimposed upon interstitial lung disease. ACT 112: Negative or not required by law. Electronically signed by: Jer Chavarria M.D. 02/20/2023 10:07 AM
--- NOTE | 2023-02-20 10:34 | Pulmonology Progress Note ---
Date of Service February 20, 2023 Assessment & Plan (1) (HFpEF) heart failure with preserved ejection fraction: (2) SVT (supraventricular tachycardia): (3) Acute and chronic respiratory failure with hypoxia: (4) Interstitial lung disease: (5) Cough: (6) COVID-19: (7) Ex-smoker: Plan CT chest 02/19/2023 personally reviewed: Patchy groundglass opacities appreciated bilaterally Honeycombing with traction bronchiectasis appreciated bilaterally upper lobes especially on the left upper Minimal mediastinal lymphadenopathy Cardiomegaly -- Acute on chronic hypoxic respiratory failure Worsening on patient's latest CT chest is likely from the recent COVID-19 pneumonia Patient was also in SVT which can cause flash pulmonary edema giving a similar presentation COVID-19 PCR negative, rest of the respiratory bio fire negative Patient tested for positive COVID on 02/03/2023 Procalcitonin 0.08, BNP 56, CRP 2.38 Nasal MRSA negative -- UIP-like pattern/ILD with restrictive lung dysfunction Follows up with Dr. Field as an outpatient Not on any treatment for ILD --Ex-smoker >[id number] smoking history On Anoro at home PFT 05/15/2022: Moderate restrictive lung dysfunction, insignificant bronchodilator response, moderate decrease in DLCO FEV1 2.01 L 68%, FVC 2.55 L 61%, TLC 63%, DLCO 52% Plan: Chest x-ray from today still shows patchy bilateral opacities with decreased lung volumes Patient does desaturate significantly on minimal exertion, even while he is do ing incentive spirometry he will desaturate. Try to keep O2 saturation between 90-92% Continue with dexamethasone while in the hospital Complete 5 days of azithromycin Continue with diuretics Continue with Mucinex and flutter valve and incentive spirometry BiPAP nightly and as needed shortness of breath Case discussed with RN at bedside Please note the above document was generated using voice recognition software. It may contain grammatical, syntax or spelling errors.Any formal questions or concerns about the content, text or information contained within the body of this dictation should be directly addressed to the provider for clarification. Admission and Anticipated Discharge Date Admission Date: February 19, 2023 Subjective Patient seen and examined at bedside. No acute distress, notable chills overnight. Patient is feeling much better since coming to the hospital He was saturating 95 to 96% on 6 L nasal cannula. I went down to 4 L when I entered the room while talking the patient he did desaturate to the mid 80s. I went up to 6 L again. Has been using flutter valve. Fair appetite No nausea or vomiting No headache, no blurry vision Review of Systems Review of Systems: All systems reviewed & are unremarkable except as noted in Subjective Physical Exam Physical Exam: Constitutional: No acute distress HEENT: EOMI, PERRLA Respiratory system:Decreased air entry bilaterally, no wheeze, rhonchi, positive Velcro-like crackles appreciated bilaterally more on the left side CVS: S1-S2 positive, Positive 3 out of 6 systolic murmur appreciated best at the apex Abdomen: Soft, nontender, nondistended, positive bowel sounds x4 Extremities: +2 pulses bilaterally radialis/ dorsalis pedis, no cyanosis, +1 ed jose bilateral lower extremity Neuro: Awake alert oriented x3 Psych: Normal mood and affect G/U: Positive Noonan Skin: no rashes, warm and dry Lymphatic: no cervical or axillary lymphadenopathy Results & Data Results & Data Vital Signs (Past 12 Hours) Vital Signs Temp Pulse Pulse Resp BP Pulse Ox O2 Del Method 02/20/23 07:22 60 02/20/23 07:21 88 18 98 Oxymask 02/20/23 07:14 36.4 C L 52 L 28 H 125/64 96 Oxymask 02/20/23 03:02 36.4 C L 71 28 H 125/71 93 Oxymask 02/19/23 22:41 36.9 C 71 30 H 116/62 94 Oxymask O2 Flow Rate 02/20/23 07:22 02/20/23 07:21 8 02/20/23 07:14 8.0 02/20/23 03:02 8.0 02/19/23 22:41 8.0 Laboratory Results 02/20/23 03:12 02/20/23 03:12 PG Care Time/CCT Total # of Minutes Spent Total Time Spent with Patient: Total time spent is greater than 50% in coordination of care (as documented) at patient's floor/unit and/or counseling patient: Coding Level of Care Code 13930 SUB INP/OBS CARE 3/50MIN Diagnoses (HFpEF) heart failure with preserved ejection fraction I50.30 SVT (supraventricular tachycardia) I47.1 Acute and chronic respiratory failure with hypoxia J96.21 Interstitial lung disease J84.9 Cough R05.9 COVID-19 U07.1 Ex-smoker Z87.891
--- NOTE | 2023-02-20 14:33 | Hospitalist Progress Note ---
Date of Service February 20, 2023 Assessment & Plan (1) SVT (supraventricular tachycardia): Plan: Now on diltiazem short acting dosing. We will switch to long-acting once daily dosing tomorrow, February 21, if stable. Telemetry. He underwent recent echocardiography which will not be repeated. (2) Acute respiratory failure with hypoxia: Plan: The patient was discharged with 6L NC after his last admission on 02/07/23 . He has COPD with chronic interstitial lung disease. No new findings on current chest x-ray. Admission chest CTA negative for PE. Appreciate pulmonary medicine consultation and recommendations. He is now on intravenous dexamethasone and azithromycin. (3) Elevated troponin: Plan: No chest pain and no acute EKG changes. No evidence of acute coronary syndrome. Likely due to demand from SVT and hypoxia (4) (HFpEF) heart failure with preserved ejection fraction: Plan: Last TTE was earlier this month which showed HFpEF and severe aortic stenosis . No current exacerbation. Continue Lasix. Monitor intake and output (5) HTN (hypertension): Plan: Stable . Continue current medical management (6) IPF (idiopathic pulmonary fibrosis): Plan: Resulting in chronic respiratory failure. (7) BPH with obstruction/lower urinary tract symptoms: Plan: Stable. Continue terazosin and finasteride (8) Severe aortic stenosis: Plan: Aware. No intervention necessary at this time Plan Anticipate eventual return to [facility] in his previous living arrangements Admission and Anticipated Discharge Date Admission Date: February 19, 2023 Subjective Alert and oriented. No distress. Diltiazem started for paroxysmal SVT. He currently is requiring 8 L of oxygen on admission. Chest x-ray however reveals chronic changes with no new significant findings. Hopefully can wean oxygen back to his previous levels. Troponin is elevated but no evidence of acute WA. Review of Systems Review of Systems: Constitutional-no fever or chills ENT-no blurred vision, no double vision, no epistaxis, no sore throat Respiratory-no cough, no wheezing. Shortness of breath with exertion Cardiac-no palpitations, no chest pain, no syncope GI-no nausea, vomiting, diarrhea, melena, hematochezia -no urinary retention, no urinary incontinence, no dysuria, no hematuria Musculoskeletal-no joint pain, no muscle tenderness Skin-no bruising, no rashes, no pruritus Neuro-no isolated weakness, no paresthesia, no weakness Psych-no depression, no anxiety Physical Exam Physical Exam: General-alert and oriented x3, no fevers, no chills HEENT-head atraumatic and normocephalic, pupils equal and reactive to light, extraocular muscles intact Neck-no lymphadenopathy or thyromegaly, trachea midline Chest-bilateral coarse rales. No wheezing Cardiac-regular rate and rhythm, normal S1 and S2 Abdomen-normal bowel sounds, nontender, no hepatosplenomegaly Extremities-no cyanosis, clubbing, or edema Neuro-cranial nerves II through XII intact, motor and sensory function within normal limits, strength symmetrical , no focal deficits Psych-normal affect, normal mood Results & Data Results & Data Vital Signs (Past 12 Hours) Vital Signs Temp Pulse Pulse Pulse Resp BP Pulse Ox 02/20/23 14:24 69 104/52 L 02/20/23 11:49 36.5 C 75 24 99/56 L 96 02/20/23 11:25 61 18 98 02/20/23 11:08 02/20/23 07:22 60 02/20/23 07:21 88 18 98 02/20/23 07:14 36.4 C L 52 L 28 H 125/64 96 02/20/23 03:02 36.4 C L 71 28 H 125/71 93 O2 Del Method O2 Flow Rate 02/20/23 14:24 02/20/23 11:49 Nasal Cannula 5.0 02/20/23 11:25 Nasal Cannula 5 02/20/23 11:08 Nasal Cannula 6 02/20/23 07:22 02/20/23 07:21 Oxymask 8 02/20/23 07:14 Oxymask 8.0 02/20/23 03:02 Oxymask 8.0 Laboratory Results 02/20/23 03:12 02/20/23 03:12 PG Care Time/CCT Total # of Minutes Spent Total Time Spent with Patient: Total time spent is greater than 50% in coordination of care (as documented) at patient's floor/unit and/or counseling patient: Coding Level of Care Code 39658 SUB INP/OBS CARE 3/50MIN Diagnoses SVT (supraventricular tachycardia) I47.1 Acute respiratory failure with hypoxia J96.01 Elevated troponin R77.8 (HFpEF) heart failure with preserved ejection fraction I50.30 HTN (hypertension) I10 IPF (idiopathic pulmonary fibrosis) J84.112 BPH with obstruction/lower urinary tract symptoms N40.1; N13.8 Severe aortic stenosis I35.0
[2023-02-20] MEDS: dexAMETHasone 6 MG in SYRINGE 0 ML IV SCH (15:18)
--- NOTE | 2023-02-20 15:22 | Procedure Note ---
Procedure Note Date of Service February 20, 2023 Note Bedside Ultrasound: Lung: Right:-Moderate right-sided pleural effusion with dependent atelectasis of the right lower lobe, some pleural thickening also appreciated. B-lines anteriorly Left:-No pleural effusion, B-lines appreciated posteriorly, a lines anteriorly Please note the above document was generated using voice recognition software. It may contain grammatical, syntax or spelling errors.Any formal questions or concerns about the content, text or information contained within the body of this dictation should be directly addressed to the provider for clarification. Coding CPT Codes Pulmonary/Thoracic - Pulmonary and Thoracic: 69913 US, Chest, real time with imaging documentation ([id number]) [facility] [place] Procedure Codes (Charges) Pulmonary/Thoracic Procedure 1: Pulmonary and Thoracic: 01539 US, Chest, real time with imaging documentation
[2023-02-20] MEDS: ENOXAPARIN INJ 40 MG/0.4 ML SYR SQ SCH (17:40)
[2023-02-20] MEDS: TERAZOSIN HCL 5 MG CAP PO SCH (20:44)
[2023-02-20] MEDS ORDERED: ACETAMINOPHEN 500 MG TAB PO STA (21:46)
[2023-02-20] MEDS ORDERED: diphenhydrAMINE Capsule 25 MG CAP PO ONE (22:00)
[2023-02-21 04:13] LABS: Basophils # (auto) 0.05 K/uL (0-0.2); Basophils % (auto) 0.5 %; Eosinophils # (auto) 0.01 K/uL (0-0.50); Eosinophils % (auto) 0.1 %; Hematocrit (blood only) 33.5 % (42.0-52.0); Hemoglobin 11.4 g/dl (14.0-18.0); Immature Granulocytes # (auto) 0.19 K/uL (0.01-0.20); Immature Granulocytes % (auto) 2.1 %; Lymphocytes # (auto) 0.73 K/uL (1.2-3.4); Mean Corpuscular Hemoglobin 34.4 pg (25.0-34.0); Mean Corpuscular Volume 101.2 fL (80.0-100.0); Mean Platelet Volume 9.3 fL (9.4-12.4); Monocytes % (auto) 5.5 %; Neutrophils # (auto) 7.67 K/uL (1.40-6.50); Neutrophils % (auto) 83.8 %; Nucleated RBC # (auto) 0.02 K/uL (0-0.12); Nucleated RBC % (auto) 0.2 %; Platelet Count 468 K/uL (130-400); RDW Coefficient of Variation 22.4 % (11.5-14.5); RDW Standard Deviation 84.1 fL (36.4-46.3); Red Blood Count 3.31 M/uL (4.70-6.10); White Blood Count 9.15 K/ul (4.8-10.8)
[2023-02-21 04:27] LABS: Albumin Globulin Ratio 1.1 (0.9-2); Albumin Level 3.2 gm/dl (3.4-5.0); Bilirubin,Total 0.5 mg/dl (0.2-1.0); Calcium 8.7 mg/dl (8.6-10.3); Est GFR (African American) 95.4 ml/min; Est GFR (Non-African American) 82.4 ml/min; Globulin 2.9 gm/dl (2.5-4.0); Magnesium 2.3 mg/dl (1.7-2.4); Potassium 4.3 mmol/L (3.5-5.1); Total Protein 6.1 gm/dl (6.0-8.3)
[2023-02-21 04:42] LABS: Anisocytosis Present
[2023-02-21 04:50] LABS: Prothrombin Time 10.5 Seconds (9.0-12.0)
[2023-02-21] MEDS: guaiFENesin SUGAR FREE 200 MG/10 ML UDC PO SCH ×4 (06:07→23:55)
[2023-02-21] MEDS: ALBUT/IPRATROP 3MG/0.5MG NEB 3 ML VIAL NEB SCH ×4 (06:56→19:32)
[2023-02-21] MEDS: UMECLIDINIUM/VILANTEROL 62.5/25MCG 7 PUFFS/INHALER INH SCH (08:16)
[2023-02-21] MEDS: ASPIRIN 81 MG CHEW PO SCH (08:16)
[2023-02-21] MEDS: dilTIAZem HCL 30 MG TAB PO SCH (08:16)
[2023-02-21] MEDS: AZITHROMYCIN 500 MG in DEXTROSE 5% 250 ML IV SCH (08:17)
[2023-02-21] MEDS: DOCUSATE SODIUM 100 MG CAP PO SCH (08:17)
[2023-02-21] MEDS: FINASTERIDE 5 MG TAB PO SCH (08:17)
[2023-02-21] MEDS: FUROSEMIDE 40 MG TAB PO SCH (08:17)
--- NOTE | 2023-02-21 08:20 | Pulmonology Progress Note ---
Date of Service February 21, 2023 Assessment & Plan (1) (HFpEF) heart failure with preserved ejection fraction: (2) SVT (supraventricular tachycardia): (3) Acute and chronic respiratory failure with hypoxia: (4) Interstitial lung disease: (5) Cough: (6) COVID-19: (7) Ex-smoker: Plan CT chest 02/19/2023 personally reviewed: Patchy groundglass opacities appreciated bilaterally Honeycombing with traction bronchiectasis appreciated bilaterally upper lobes especially on the left upper Minimal mediastinal lymphadenopathy Cardiomegaly -- Acute on chronic hypoxic respiratory failure Worsening on patient's latest CT chest is likely from the recent COVID-19 pneumonia Patient was also in SVT which can cause flash pulmonary edema giving a similar presentation COVID-19 PCR negative, rest of the respiratory bio fire negative Patient tested for positive COVID on 02/03/2023 Procalcitonin 0.08, BNP 56, CRP 2.38 Nasal MRSA negative -- UIP-like pattern/ILD with restrictive lung dysfunction Follows up with Dr. Field as an outpatient Not on any treatment for ILD --Ex-smoker >[id number] smoking history On Anoro at home PFT 05/15/2022: Moderate restrictive lung dysfunction, insignificant bronchodilator response, moderate decrease in DLCO FEV1 2.01 L 68%, FVC 2.55 L 61%, TLC 63%, DLCO 52% Plan: Try to keep O2 saturation between 90-92% Patient seems to be back to baseline when it comes to his oxygen requirement Continue with dexamethasone while in the hospital, can be discontinued on discharge Completed 3 days of azithromycin Continue with diuretics Continue with Mucinex, flutter valve and incentive spirometry BiPAP nightly and as needed shortness of breath Recommend CT chest to be done in 6-8 weeks to follow-up on the pulmonary opacities Please note the above document was generated using voice recognition software. It may contain grammatical, syntax or spelling errors.Any formal questions or concerns about the content, text or information contained within the body of this dictation should be directly addressed to the provider for clarification. Admission and Anticipated Discharge Date Admission Date: February 19, 2023 Subjective Patient seen and examined at bedside. No acute distress, no adverse signs overnight Patient states he is feeling better since coming to the hospital He was saturating 95% on 6 L nasal cannula. He has been using incentive spirometer as well as flutter valve Clear cough with no hemoptysis. Review of Systems Review of Systems: All systems reviewed & are unremarkable except as noted in Subjective Physical Exam Physical Exam: Constitutional: No acute distress HEENT: EOMI, PERRLA Respiratory system:Decreased air entry bilaterally, no wheeze, rhonchi, positive Velcro-like crackles appreciated bilaterally more on the left side CVS: S1-S2 positive, Positive 3 out of 6 systolic murmur appreciated best at the apex Abdomen: Soft, nontender, nondistended, positive bowel sounds x4 Extremities: +2 pulses bilaterally radialis/ dorsalis pedis, no cyanosis, +1 edema bilateral lower extremity Neuro: Awake alert oriented x3 Psych: Normal mood and affect G/U: Positive Noonan Skin: no rashes, warm and dry Lymphatic: no cervical or axillary lymphadenopathy Results & Data Results & Data Vital Signs (Past 12 Hours) Vital Signs Temp Pulse Pulse Pulse Resp BP Pulse Ox 02/21/23 07:37 36.4 C L 72 20 125/70 97 02/21/23 06:57 74 18 98 02/21/23 02:57 36.3 C L 67 26 H 109/65 97 02/21/23 01:31 80 02/20/23 23:27 36.3 C L 68 26 H 110/63 97 02/20/23 21:07 O2 Del Method O2 Flow Rate 02/21/23 07:37 Oxymask 7 02/21/23 06:57 Oxymask 6 02/21/23 02:57 Oxymask 6.0 02/21/23 01:31 02/20/23 23:27 Oxymask 6.0 02/20/23 21:07 Oxymask 6 Laboratory Results 02/21/23 03:34 02/21/23 03:34 PG Care Time/CCT Total # of Minutes Spent Total Time Spent with Patient: Total time spent is greater than 50% in coordination of care (as documented) at patient's floor/unit and/or counseling patient: Coding Level of Care Code 63971 SUB INP/OBS CARE 2/35MIN Diagnoses (HFpEF) heart failure with preserved ejection fraction I50.30 SVT (supraventricular tachycardia) I47.1 Acute and chronic respiratory failure with hypoxia J96.21 Interstitial lung disease J84.9 Cough R05.9 COVID-19 U07.1 Ex-smoker Z87.891
[2023-02-21] MEDS ORDERED: diphenhydrAMINE Capsule 25 MG CAP PO ONE (09:34)
[2023-02-21] MEDS: dilTIAZem HCL 120 MG CAPCR PO SCH (12:13)
--- NOTE | 2023-02-21 14:29 | Hospitalist Progress Note ---
Date of Service February 21, 2023 Assessment & Plan (1) SVT (supraventricular tachycardia): Plan: Short acting diltiazem switch to CD formulation. No SVT recurrence. Telemetry. He underwent recent echocardiography which will not be repeated. (2) Acute respiratory failure with hypoxia: Plan: The patient was discharged with 6L NC after his last admission on 02/07/23 . He has COPD with chronic interstitial lung disease. No new findings on current chest x-ray. Admission chest CTA negative for PE. Appreciate pulmonary medicine consultation and recommendations. He is now on intravenous dexame thasone. Azithromycin discontinued today, February 21, due to localized reaction at the IV site. (3) Elevated troponin: Plan: No chest pain and no acute EKG changes. No evidence of acute coronary syndrome. Likely due to demand from SVT and hypoxia (4) (HFpEF) heart failure with preserved ejection fraction: Plan: Last TTE was earlier this month which showed HFpEF and severe aortic stenosis . No current exacerbation. Continue Lasix. Monitor intake and output (5) HTN (hypertension): Plan: Stable . Continue current medical management (6) IPF (idiopathic pulmonary fibrosis): Plan: Resulting in chronic respiratory failure. (7) BPH with obstruction/lower urinary tract symptoms: Plan: Stable. Continue terazosin and finasteride (8) Severe aortic stenosis: Plan: Aware. No intervention necessary at this time Plan Anticipate eventual return to [facility] in his previous living arrangements on Thursday Admission and Anticipated Discharge Date Admission Date: February 19, 2023 Subjective Stable overall. He had a localized reaction to the intravenous azithromycin which has been discontinued. Benadryl ordered and has helped. He is tolerating the diltiazem which has been switched to the CD formulation. Chest x-ray done February 20 is stable with no new changes. Probable discharge to [facility] on Thursday Review of Systems Review of Systems: Constitutional-no fever or chills ENT-no blurred vision, no double vision, no epistaxis, no sore throat Respiratory-no cough, no wheezing. Shortness of breath with exertion Cardiac-no palpitations, no chest pain, no syncope GI-no nausea, vomiting, diarrhea, melena, hematochezia -no urinary retention, no urinary incontinence, no dysuria, no hematuria Musculoskeletal-no joint pain, no muscle tenderness Skin-no bruising, no rashes, no pruritus Neuro-no isolated weakness, no paresthesia, no weakness Psych-no depression, no anxiety Physical Exam Physical Exam: General-alert and oriented x3, no fevers, no chills HEENT-head atraumatic and normocephalic, pupils equal and reactive to light, extraocular muscles intact Neck-no lymphadenopathy or thyromegaly, trachea midline Chest-bilateral coarse rales. No wheezing Cardiac-regular rate and rhythm, normal S1 and S2 Abdomen-normal bowel sounds, nontender, no hepatosplenomegaly Extremities-no cyanosis, clubbing, or edema Neuro-cranial nerves II through XII intact, motor and sensory function within normal limits, strength symmetrical , no focal deficits Psych-normal affect, normal mood Results & Data Results & Data Vital Signs (Past 12 Hours) Vital Signs Temp Pulse Pulse Resp BP Pulse Ox Pulse Ox 02/21/23 11:49 36.5 C 92 H 22 102/48 L 97 02/21/23 11:07 89 23 95 02/21/23 08:00 02/21/23 08:00 95 02/21/23 07:37 36.4 C L 72 20 125/70 97 02/21/23 06:57 74 18 98 02/21/23 02:57 36.3 C L 67 26 H 109/65 97 O2 Del Method O2 Del Method O2 Flow Rate O2 Flow Rate 02/21/23 11:49 Nasal Cannula 7 02/21/23 11:07 Oxymask 6 02/21/23 08:00 Oxymask 5 02/21/23 08:00 Oxymask 6 02/21/23 07:37 Oxymask 7 02/21/23 06:57 Oxymask 6 02/21/23 02:57 Oxymask 6.0 Laboratory Results 02/21/23 03:34 02/21/23 03:34 PG Care Time/CCT Total # of Minutes Spent Total Time Spent with Patient: Total time spent is greater than 50% in coordination of care (as documented) at patient's floor/unit and/or counseling patient: Coding Level of Care Code 33810 SUB INP/OBS CARE 3/50MIN Diagnoses SVT (supraventricular tachycardia) I47.1 Acute respiratory failure with hypoxia J96.01 Elevated troponin R77.8 (HFpEF) heart failure with preserved ejection fraction I50.30 HTN (hypertension) I10 IPF (idiopathic pulmonary fibrosis) J84.112 BPH with obstruction/lower urinary tract symptoms N40.1; N13.8 Severe aortic stenosis I35.0
[2023-02-21] MEDS: ENOXAPARIN INJ 40 MG/0.4 ML SYR SQ SCH (16:58)
[2023-02-21] MEDS: dexAMETHasone 6 MG in SYRINGE 0 ML IV SCH (16:59)
[2023-02-21] MEDS: TERAZOSIN HCL 5 MG CAP PO SCH (20:12)
[2023-02-21] MEDS ORDERED: MELATONIN 3 MG TAB PO PRN (22:18)
[2023-02-21] MEDS: diphenhydrAMINE Capsule 25 MG CAP PO PRN (22:19)
[2023-02-22] MEDS: guaiFENesin SUGAR FREE 200 MG/10 ML UDC PO SCH ×3 (06:07→17:49)
[2023-02-22 06:35] LABS: Basophils # (auto) 0.03 K/uL (0-0.2); Basophils % (auto) 0.3 %; Eosinophils # (auto) 0.01 K/uL (0-0.50); Eosinophils % (auto) 0.1 %; Hematocrit (blood only) 33.3 % (42.0-52.0); Hemoglobin 11.4 g/dl (14.0-18.0); Immature Granulocytes # (auto) 0.16 K/uL (0.01-0.20); Immature Granulocytes % (auto) 1.7 %; Lymphocytes # (auto) 0.72 K/uL (1.2-3.4); Lymphocytes % (auto) 7.6 %; Mean Corpuscular Hemoglobin 34.1 pg (25.0-34.0); Mean Corpuscular Hgb Conc 34.2 g/dL (32.0-36.0); Mean Corpuscular Volume 99.7 fL (80.0-100.0); Mean Platelet Volume 9.6 fL (9.4-12.4); Monocytes # (auto) 0.57 K/uL (0.11-0.59); Neutrophils # (auto) 7.99 K/uL (1.40-6.50); Neutrophils % (auto) 84.3 %; Nucleated RBC # (auto) 0.03 K/uL (0-0.12); Nucleated RBC % (auto) 0.3 %; Platelet Count 489 K/uL (130-400); RDW Coefficient of Variation 22.5 % (11.5-14.5); Red Blood Count 3.34 M/uL (4.70-6.10); White Blood Count 9.48 K/ul (4.8-10.8)
[2023-02-22] MEDS: ALBUT/IPRATROP 3MG/0.5MG NEB 3 ML VIAL NEB SCH ×4 (06:50→19:23)
[2023-02-22 06:51] LABS: Albumin Globulin Ratio 1.1 (0.9-2); Albumin Level 3.1 gm/dl (3.4-5.0); BUN Creatinine Ratio 29.3 (10-20); Bilirubin,Total 0.5 mg/dl (0.2-1.0); Calcium 8.6 mg/dl (8.6-10.3); Est GFR (African American) 95.4 ml/min; Est GFR (Non-African American) 82.4 ml/min; Globulin 2.9 gm/dl (2.5-4.0); Magnesium 2.3 mg/dl (1.7-2.4); Potassium 4.3 mmol/L (3.5-5.1)
[2023-02-22 06:59] LABS: Anisocytosis Present; Tear Drop Cells 1+
[2023-02-22 07:05] LABS: Prothrombin Time 10.8 Seconds (9.0-12.0)
[2023-02-22] MEDS: UMECLIDINIUM/VILANTEROL 62.5/25MCG 7 PUFFS/INHALER INH SCH (07:06)
[2023-02-22] MEDS: FINASTERIDE 5 MG TAB PO SCH (08:19)
[2023-02-22] MEDS: DOCUSATE SODIUM 100 MG CAP PO SCH (08:19)
[2023-02-22] MEDS: FUROSEMIDE 40 MG TAB PO SCH (08:19)
[2023-02-22] MEDS: dilTIAZem HCL 120 MG CAPCR PO SCH (08:19)
[2023-02-22] MEDS: ASPIRIN 81 MG CHEW PO SCH (08:19)
--- NOTE | 2023-02-22 09:51 | Pulmonology Progress Note ---
Date of Service February 22, 2023 Assessment & Plan (1) (HFpEF) heart failure with preserved ejection fraction: (2) SVT (supraventricular tachycardia): (3) Acute and chronic respiratory failure with hypoxia: (4) Interstitial lung disease: (5) Cough: (6) COVID-19: (7) Ex-smoker: Plan CT chest 02/19/2023 personally reviewed: Patchy groundglass opacities appreciated bilaterally Honeycombing with traction bronchiectasis appreciated bilaterally upper lobes especially on the left upper Minimal mediastinal lymphadenopathy Cardiomegaly -- Acute on chronic hypoxic respiratory failure Worsening on patient's latest CT chest is likely from the recent COVID-19 pneumonia Patient was also in SVT which can cause flash pulmonary edema giving a similar presentation COVID-19 PCR negative, rest of the respiratory bio fire negative Patient tested for positive COVID on 02/03/2023 Procalcitonin 0.08, BNP 56, CRP 2.38 Nasal MRSA negative -- UIP-like pattern/ILD with restrictive lung dysfunction Follows up with Dr. Field as an outpatient Not on any treatment for ILD --Ex-smoker >[id number] smoking history On Anoro at home PFT 05/15/2022: Moderate restrictive lung dysfunction, insignificant bronchodilator response, moderate decrease in DLCO FEV1 2.01 L 68%, FVC 2.55 L 61%, TLC 63%, DLCO 52% Plan: In/out: -1 L, urine output 2450, -3.5 L since coming to the hospital Try to keep O2 saturation between 90-92% Patient seems to be back to baseline when it comes to his oxygen requirement Recommend dexamethasone while in the hospital, can be discontinued on discharge Completed 3 days of azithromycin Continue with diuretics Continue with Mucinex, flutter valve and incentive spirometry BiPAP nightly and as needed shortness of breath Recommend CT chest to be done in 6-8 weeks to follow-up on the pulmonary opacities No further recommendation from pulmonary perspective, will sign off Please call directly with any questions Please note the above document was generated using voice recognition software. It may contain grammatical, syntax or spelling errors.Any formal questions or concerns about the content, text or information contained within the body of this dictation should be directly addressed to the provider for clarification. Admission and Anticipated Discharge Date Admission Date: February 19, 2023 Subjective Patient seen and examined at bedside. No acute distress, no adverse events overnight. He was taking a nap when I walked into the room. Saturating 99% on 6 L nasal cannula. I went down to 5 L. He says his shortness of breath is better. Has been using incentive spirometry as well as flutter valve. Coughing up clear phlegm. Denies any chest pain No nausea vomiting Fair appetite Review of Systems Review of Systems: All systems reviewed & are unremarkable except as noted in Subjective Physical Exam Physical Exam: Constitutional: No acute distress HEENT: EOMI, PERRLA Respiratory system:Decreased air entry bilaterally, no wheeze, rhonchi, positive Velcro-like crackles appreciated bilaterally more on the left side CVS: S1-S2 positive, Positive 3 out of 6 systolic murmur appreciated best at the apex Abdomen: Soft, nontender, nondistended, positive bowel sounds x4 Extremities: +2 pulses bilaterally radialis/ dorsalis pedis, no cyanosis, +1 edema bilateral lower extremity Neuro: Awake alert oriented x3 Psych: Normal mood and affect G/U: Positive [place]onan Skin: no rashes, warm and dry Lymphatic: no cervical or axillary lymphadenopathy Results & Data Results & Data Vital Signs (Past 12 Hours) Vital Signs Temp Pulse Pulse Pulse Resp BP Pulse Ox 02/22/23 08:00 02/22/23 08:00 02/22/23 07:47 36.5 C 76 20 122/67 96 02/22/23 06:51 77 18 94 02/22/23 04:07 36.9 C 71 16 109/63 94 02/21/23 23:00 86 02/21/23 22:13 36.9 C 82 18 114/66 93 O2 Del Method O2 Del Method O2 Flow Rate O2 Flow Rate 02/22/23 08:00 Nasal Cannula, Oxymask 5 02/22/23 08:00 Nasal Cannula, Oxymask 5 02/22/23 07:47 Nasal Cannula 6 02/22/23 06:51 Nasal Cannula 6 02/22/23 04:07 Nasal Cannula 6 02/21/23 23:00 02/21/23 22:13 Nasal Cannula 6 Laboratory Results 02/22/23 06:03 02/22/23 06:03 PG Care Time/CCT Total # of Minutes Spent Total Time Spent with Patient: Total time spent is greater than 50% in coordination of care (as documented) at patient's floor/unit and/or counseling patient: Coding Level of Care Code 20810 SUB INP/OBS CARE MIN Diagnoses (HFpEF) heart failure with preserved ejection fraction I50.30 SVT (supraventricular tachycardia) I47.1 Acute and chronic respiratory failure with hypoxia J96.21 Interstitial lung disease J84.9 Cough R05.9 COVID-19 U07.1 Ex-smoker Z87.891
--- NOTE | 2023-02-22 13:04 | Hospitalist Progress Note ---
Date of Service February 22, 2023 Assessment & Plan (1) SVT (supraventricular tachycardia): Plan: Short acting diltiazem has been switched to CD formulation. No SVT recurrence. Telemetry. He underwent recent echocardiography which will not be repeated. (2) Acute respiratory failure with hypoxia: Plan: The patient was discharged with 6L NC after his last admission on 02/07/23 . He has COPD with chronic interstitial lung disease. No new findings on current chest x-ray. Admission chest CTA negative for PE. Appreciate pulmonary medicine consultation and recommendations. Parenteral glucocorticoids have been switched to oral prednisone which can be tapered off when he returns to [facility]. Azithromycin has been discontinued on February 21, due to localized reaction at the IV site. (3) Elevated troponin: Plan: No chest pain and no acute EKG changes. No evidence of acute coronary syndrome. Likely due to demand from SVT and hypoxia (4) (HFpEF) heart failure with preserved ejection fraction: Plan: Last TTE was earlier this month which showed HFpEF and severe aortic stenosis . No current exacerbation. Continue Lasix. Monitor intake and output (5) HTN (hypertension): Plan: Stable . Continue current medical management (6) IPF (idiopathic pulmonary fibrosis): Plan: Resulting in chronic respiratory failure. (7) BPH with obstruction/lower urinary tract symptoms: Plan: Stable. Continue terazosin and finasteride (8) Severe aortic stenosis: Plan: Aware. No intervention necessary at this time Plan Anticipate eventual return to [facility] in his previous living arrangements on February 23 Admission and Anticipated Discharge Date Admission Date: February 19, 2023 Subjective Alert and oriented. No new problems. No recurrent SVT. Tolerating diltiazem CD. Parenteral steroid therapy switched to prednisone 10 mg 3 times a day which can be administered in a tapering dose fashion when he returns to [facility] and eventually discontinued. Current oxygen requirements are down to 5 L/min and can be weaned down to his usual oxygen requirements as soon as possible. Azithromycin has been discontinued due to a localized reaction at the IV site. Review of Systems Review of Systems: Constitutional-no fever or chills ENT-no blurred vision, no double vision, no epistaxis, no sore throat Respiratory-no cough, no wheezing. Shortness of breath with exertion Cardiac-no palpitations, no chest pain, no syncope GI-no nausea, vomiting, diarrhea, melena, hematochezia -no urinary retention, no urinary incontinence, no dysuria, no hematuria Musculoskeletal-no joint pain, no muscle tenderness Skin-no bruising, no rashes, no pruritus Neuro-no isolated weakness, no paresthesia, no weakness Psych-no depression, no anxiety Physical Exam 2 Physical Exam: General-alert and oriented x3, no fevers, no chills HEENT-head atraumatic and normocephalic, pupils equal and reactive to light, extraocular muscles intact Neck-no lymphadenopathy or thyromegaly, trachea midline Chest-bilateral coarse rales. No wheezing Cardiac-regular rate and rhythm, normal S1 and S2 Abdomen-normal bowel sounds, nontender, no hepatosplenomegaly Extremities-no cyanosis, clubbing, or edema Neuro-cranial nerves II through XII intact, motor and sensory function within normal limits, strength symmetrical , no focal deficits Psych-normal affect, normal mood Results & Data Results & Data Vital Signs (Past 12 Hours) Vital Signs Temp Pulse Pulse Resp BP Pulse Ox O2 Del Method 02/22/23 11:19 36.9 C 86 20 109/60 95 Nasal Cannula 02/22/23 10:40 79 18 94 Nasal Cannula 02/22/23 08:00 Nasal Cannula, Oxymask 02/22/23 08:00 02/22/23 07:47 36.5 C 76 20 122/67 96 Nasal Cannula 02/22/23 06:51 77 18 94 Nasal Cannula 02/22/23 04:07 36.9 C 71 16 109/63 94 Nasal Cannula O2 Del Method O2 Flow Rate O2 Flow Rate 02/22/23 11:19 5 02/22/23 10:40 6 02/22/23 08:00 5 02/22/23 08:00 Nasal Cannula, Oxymask 5 02/22/23 07:47 6 02/22/23 06:51 6 02/22/23 04:07 6 Laboratory Results 02/22/23 06:03 02/22/23 06:03 PG Care Time/CCT Total # of Minutes Spent Total Time Spent with Patient: Total time spent is greater than 50% in coordination of care (as documented) at patient's floor/unit and/or counseling patient: Coding Level of Care Code 60864 SUB INP/OBS CARE 3/50MIN Diagnoses SVT (supraventricular tachycardia) I47.1 Acute respiratory failure with hypoxia J96.01 Elevated troponin R77.8 (HFpEF) heart failure with preserved ejection fraction I50.30 HTN (hypertension) I10 IPF (idiopathic pulmonary fibrosis) J84.112 BPH with obstruction/lower urinary tract symptoms N40.1; N13.8 Severe aortic stenosis I35.0
[2023-02-22] MEDS: predniSONE 10 MG TABLET PO SCH ×2 (13:29→21:21)
[2023-02-22] MEDS: ENOXAPARIN INJ 40 MG/0.4 ML SYR SQ SCH (16:21)
[2023-02-22] MEDS: TERAZOSIN HCL 5 MG CAP PO SCH (21:21)
[2023-02-22] MEDS: diphenhydrAMINE Capsule 25 MG CAP PO PRN (22:28)
[2023-02-23] MEDS: guaiFENesin SUGAR FREE 200 MG/10 ML UDC PO SCH ×3 (00:34→13:11)
[2023-02-23] MEDS: ALBUT/IPRATROP 3MG/0.5MG NEB 3 ML VIAL NEB SCH ×2 (08:04→12:01)
[2023-02-23] MEDS: predniSONE 10 MG TABLET PO SCH ×2 (08:59→13:43)
[2023-02-23] MEDS: UMECLIDINIUM/VILANTEROL 62.5/25MCG 7 PUFFS/INHALER INH SCH (09:00)
[2023-02-23] MEDS: FUROSEMIDE 40 MG TAB PO SCH (09:01)
[2023-02-23] MEDS: ASPIRIN 81 MG CHEW PO SCH (09:01)
[2023-02-23] MEDS: FINASTERIDE 5 MG TAB PO SCH (09:02)
[2023-02-23] MEDS: DOCUSATE SODIUM 100 MG CAP PO SCH (09:02)
[2023-02-23] MEDS: dilTIAZem HCL 120 MG CAPCR PO SCH (09:02)
--- NOTE | 2023-02-23 13:52 | Discharge Summary ---
Date of Service February 23, 2023 Admission HPI Per Admitting Provider Toan Smalls is an 83-year-old male with a past medical history of idiopathic pulmonary fibrosis, HFpEF (LVEF of 60-65% as of 02/04/23), Severe aortic stenosis, hyperlipidemia, hypertension, BPH, and macrocytic anemia who presented to the [facility] ED on 02/19/23 with a chief complaint of SVT noted at his residence at [facility]. Per the ED staff, the patient was found to be in SVT earlier today with HRs in the 180s. The patient was reportedly symptomatic with fatigue and weakness during the episode. EMS was called and administered 6 mg then 12 mg of Adenosine and the patient spontaneously converted to NSR in the 100s. In the ED the patient was found to be afebrile, hemodynamically stable, but hypoxic on his baseline 6L NC. Labs were significant for a leukocytosis of 11.12 (down from 11.8 as of 02/09/23), left shift of 8.26, stable Hgb of 12.5 with platelets of 498 (down from 602 as of 02/09), stable renal function 1.03, with glucose of 156 and stable electrolytes, LFTs WNL, initial high sen trop of 51, TSH WNL, and full respiratory biofire in process. CTA of the chest with PE protocol was read as "No pulmonary embolus is seen although exam is limited by patient motion. 2. Interstitial thickening and pulmonary hypertension.". Prior to admission the patient was given 2 doses of levalbuterol, 2 doses of Ipratropium, and 1L NSS bolus. Per chart review, the patient was last admitted from 02/03-02/07 due to acute hypoxic respiratory failure; he was also found to be Covid 19 positive. At the time of the admission he acute hypoxic respiratory failure was thought to mainly be due to his baseline idiopathic lung disease and acute diastolic CHF exacerbation. He was treated with IV Lasix and supplemental oxygen. He was discharged back to [facility] on 6L NC with a goal to continue to wean, 40 po Lasix daily, a 10 mg Prednisone taper over 6 days, and vitamin D. AT the time of the exam the patient was resting in bed in no acute distress, he was saturating at 97% on7L oxymask. I was able to wean his oxygen down to 6L Oxymask and he remained stable. He states that since discharge on 02/07 his respiratory status felt as though it was slowly improving. He states he was still on the 6L at [facility] but his breathing felt as though it was improving and his activity level was improving. This morning he had a friend visiting but felt weak and tired. He was evaluated by their staff who found him to be in SVT. He states that during the episode of SVT he felt tired but denies any recent chest pain, heart palpitations, or increased SOB. At the time of the exam he states he is currently feeling well and feels improved compared to this am. When asked, he states that he was taking the lasix as prescribed and finished the course of Prednisone as prescribed. He has a baseline COPD cough with white sputum production. He does not feel as though his cough has worsened and he denies increased sputum production and changes in sputum color. He denies recent fever, chills, chest pain, increased SOB, cough, sputum production, abd pain, nausea, vomiting, diarrhea, dysuria, hematuria, melena, LE swelling, and recent trauma. We discussed code status, he still wishes to be a DNR/DNI. Please refer to Dr. Mcdonald's attestation for any changes to the treatment plan Principal Diagnosis SVT Discharge Exam Constitutional WD/WN, vitals as above Respiratory normal respiratory effort Auscultation: + crackles (bilateral lower and upper lung arnold); no rhonchi and no wheezes Cardiovascular Rate/Rhythm: regular rate and regular rhythm Heart Sounds: no murmur Extremities: no edema Discharge Data Allergies Allergy/AdvReac Type Severity Reaction Status Date / Time azithromycin Allergy Intermediate Redness of Verified 02/21/23 18:59 Skin atorvastatin AdvReac Intermediate stomach Verified 02/19/23 13:41 upset doxycycline AdvReac Intermediate Gastrointestinal Verified 02/19/23 13:41 Upset Consultations 02/19/23 13:56 ED Decision to Admit Stat 02/19/23 14:17 Consult Pulmonology Routine Ordered Studies 02/19/23 11:19 CT angio chest PE protocol Stat Hospital Course (1) SVT (supraventricular tachycardia): Short acting diltiazem has been switched to CD formulation. No SVT recurrence. He underwent recent echocardiography which will not be repeated. No further workup needed (2) Acute respiratory failure with hypoxia: The patient was discharged with 6L NC after his last admission on 02/07/23 . He has COPD with chronic interstitial lung disease. No new findings on current chest x-ray. Admission chest CTA negative for PE. Appreciate pulmonary medicine consultation and recommendations. Parenteral glucocorticoids have been switched to oral prednisone which can be discontinued when he returns to [facility]. Azithromycin has been discontinued on February 21, due to localized reaction at the IV site. Improving, now down to 5LNC at rest continue to wean off O2 as an outpt as able to keep POx 90-92% f/u with PULM as outpt and needs repeat Chest CT in 6-8 weeks (3) Elevated troponin: No chest pain and no acute EKG changes. No evidence of acute coronary syndrome. Likely due to demand from SVT and hypoxia (4) (HFpEF) heart failure with preserved ejection fraction: Last TTE was earlier this month which showed HFpEF and severe aortic stenosis . No current exacerbation. Continue Lasix. Monitor intake and output (5) HTN (hypertension): Stable . Continue current medical management added on diltiazem as above for SVT (6) IPF (idiopathic pulmonary fibrosis): Resulting in chronic respiratory failure. (7) BPH with obstruction/lower urinary tract symptoms: Stable. Continue terazosin and finasteride Noonan removed on day of discharge and voiding on own (8) Severe aortic stenosis: Aware. No intervention necessary at this time f/u with Cardiology as an outpt Plan Dispo-l return to [facility] today Total Time Total Time Spent Total Time Spent (In Minutes): 35 min Discharge Plan Discharge Items Patient Disposition[facility] Reason For Visit: SVT Discharge Diagnosis: SVT Condition on Discharge: Good Activity: As commented below Lifting: Gradually increase as tolerated Bathing: No limitations Exercise/Sports: Gradually increase as tolerated Exercise Comment: with PT/OT Non-emergency contact: Primary Care Provider and Multigraph Operator Call non-emergency contact if: you have any medication questions and your symptoms worsen Follow-up/Referrals: [place] MD [Physician] - (Follow up with Pulmonology in 4-6 weeks.) Kaya Mendez [Primary Care Provider] - (Follow up within 1 week.) Diet: Heart Healthy Addtl Attending Provider Instructions: You were admitted with a rapid heart rhythm called SVT which converted back to a normal rhythm after being given adenosine. You were started on a medication called diltiazem to help control your heart rate. You were also continued on some prednisone for your lung issues. The Multigraph Operator recommends stopping the prednisone on discharge, but you will need a repeat CT scan of the chest in 6-8 weeks. Your oxygen was weaned down to 5L via nasal cannula prior to discharge. Pending Studies at Discharge: No Stand-Alone Forms: My [facility] Skilled Items Patient informed of condition?: Yes DNR: Yes Discharge Level of Care: Skilled Communicable Disease: No Discharge Prognosis: Improving Lines: None Urinary Catheter: No Medications and DC Order Prescriptions: New diltiazem HCl [Cardizem CD] 120 mg Capsule,Extended Release 24hr 120 mg PO QAM Qty: 30 0RF Continued terazosin 5 mg capsule 5 mg PO HS Qty: 90 3RF finasteride 5 mg tablet 5 mg PO DAILY Qty: 90 3RF diphenhydramine-acetaminophen [Tylenol PM Extra Strength] 25-500 mg Tablet 2 tab PO HS aspirin 81 mg Tablet,Chewable 81 mg PO DAILY cholecalciferol (vitamin D3) [Vitamin D3] 25 mcg (1,000 unit) Capsule 1,000 mcg PO DAILY albuterol sulfate 2.5 mg /3 mL (0.083 %) solution for nebulization 2.5 mg continuous nebulization QID PRN (Reason: Shortness Of Breath) Anoro Ellipta 62.5-25 mcg/actuation blister with device 1 ea INHALATION DAILY furosemide 40 mg tablet 40 mg PO DAILY Qty: 30 0RF acetaminophen [Tylenol] 325 mg Tablet 650 mg PO Q4 PRN (Reason: Fever Or Pain) polyethylene glycol 3350 [Miralax] 17 gram Powder In Packet 17 g PO DAILY triamcinolone acetonide 0.1 % Cream 1 applic TOPICAL BID Rx Instructions: for 10 days, end 02/20/2023 docusate sodium 100 mg Capsule 100 mg PO DAILY Discharge Orders: Discharge Order (Routine); Ordered 02/23/23 Ordered By: Maria Eugenia Carpio Admission Data Admit Date/Time: 02/19/23 13:37 Attending Provider: Maria Eugenia Carpio Admit Provider: Shashank Mcdonald Primary Care Provider: Kaya Mendez Other Providers: Shashank Mcdonald ; Tanya Cast Coding Level of Care Code 00221 INP/OBS DISCH >30 MIN Diagnoses SVT (supraventricular tachycardia) I47.1 Acute respiratory failure with hypoxia J96.01 Elevated troponin R77.8 (HFpEF) heart failure with preserved ejection fraction I50.30 HTN (hypertension) I10 IPF (idiopathic pulmonary fibrosis) J84.112 BPH with obstruction/lower urinary tract symptoms N40.1; N13.8 Severe aortic stenosis I35.0
== END 2023-02-23 15:12 | DRG 308 ==
LOC: ED 11:00 → SUATTDRO 13:37 → 2S 13:37